=== PATIENT | male | born 1940 | race Hispanic/Latino ===

== ENCOUNTER 2021-10-03 09:18 | Inpatient (IN) | payer MEDICARE, OTHER ==
[2021-10-03] VITALS (7 sets, daily range): BP systolic 118–145; BP diastolic 61–85
[~2021-10-03] VITALS: Ht 170.2 cm; Wt 104.3 kg
[2021-10-03] MEDS ORDERED: MEROPENEM 1 GM in SODIUM CHLORIDE 0.9% 100 ML IV STA (09:35)
[2021-10-03] MEDS ORDERED: Vancomycin IV 500 MG in SODIUM CHLORIDE 0.9% 100 ML 100 ML IV STA (09:35)
[2021-10-03] MEDS ORDERED: SODIUM CHLORIDE 0.9% 1000ML 1,000 ML IV SCH (09:45)
[2021-10-03 09:49] LABS: BASOPHILS % 0.2 % (0.0-1.0); EOSINOPHILS # (AUTO) 0.1 (0.0-0.4); EOSINOPHILS % 0.6 % (0.0-6.0); HEMATOCRIT 32.4 % (38.2-49.6); HEMOGLOBIN 10.8 g/dL (14.0-18.0); LYMPHOCYTES # (AUTO) 0.8 (1.0-3.2); LYMPHOCYTES % 8.2 % (18.0-39.1); MEAN CORPUSCULAR HEMOGLOBIN 30.4 pg (28-32); MEAN CORPUSCULAR HGB CONC 33.3 g/dL (31-35); MEAN CORPUSCULAR VOLUME 91.3 fL (81-99); MONOCYTES # (AUTO) 0.8 (0.2-0.8); MONOCYTES % 8.6 % (4.4-11.3); PLATELET COUNT 251 x10e3/uL (140-360); RED BLOOD COUNT 3.55 x10e6/uL (4.3-5.7); RED CELL DISTRIBUTION WIDTH 12.7 % (11.7-14.4)
[2021-10-03] MEDS ORDERED: SODIUM CHLORIDE 0.9% 1000ML 1,000 ML ONE (10:00)
[2021-10-03 10:18] LABS: ALBUMIN 2.9 g/dL (3.5-5.0); ALBUMIN/GLOBULIN RATIO 0.8 (0.8-2.0); ANION GAP 14.1 mmol/L (8-16); CALCIUM 7.9 mg/dL (8.4-10.2); CREATININE, SERUM 2.26 mg/dL (0.72-1.25); POTASSIUM 4.1 mmol/L (3.5-5.1)
[2021-10-03 10:24] LABS: CREATINE KINASE MB 1.7 ng/mL (0-5.0)
[2021-10-03] MEDS ORDERED: Vancomycin IV 1.5 GM in SODIUM CHLORIDE 0.9% 250ML 300 ML IV STA (10:25)
[2021-10-03] MEDS ORDERED: FLOMAX0.4 MG PO (14:38)
[2021-10-03] MEDS ORDERED: JANUVIA50 MG PO (14:38)
[2021-10-03] MEDS ORDERED: PANTOPRAZOLE SO40 MG PO (14:38)
[2021-10-03] MEDS ORDERED: HUMULIN N100 UNITS/ SC (14:38)
[2021-10-03] MEDS ORDERED: FINASTERIDE5 MG PO (14:38)
[2021-10-03] MEDS ORDERED: FUROSEMIDE40 MG PO (14:38)
[2021-10-03] MEDS ORDERED: NIFEDIPINE ER30 M1 PO (14:38)
[2021-10-03] MEDS ORDERED: KEPPRA500 MG PO (14:38)
[2021-10-03] MEDS ORDERED: HYDRALAZINE HCL50 MG PO (14:38)
[2021-10-03] MEDS ORDERED: COREG12.5 MG PO (14:38)
[2021-10-03] MEDS ORDERED: DEXTROSE 50% SYRINGE 50 ML IV PRN (15:30)
[2021-10-03] MEDS ORDERED: MAGNESIUM/ALUMINUM/SIMETHICONE 30 ML UDC PO PRN (15:30)
[2021-10-03] MEDS ORDERED: DOCUSATE SODIUM 100 MG CAP PO PRN (15:30)
[2021-10-03] MEDS ORDERED: ONDANSETRON HCL INJ 2MG/ML 2ML 2 MG/ML VIAL IV PRN (15:30)
[2021-10-03] MEDS ORDERED: ACETAMINOPHEN 325 MG TAB PO PRN (15:30)
[2021-10-03] MEDS ORDERED: HYDRALAZINE HCL 25 MG TAB PO SCH (16:00)
[2021-10-03] MEDS: INSULIN REGULAR, HUMAN 100 UNIT/1 ML SQ SCH ×2 (16:30→21:44)
[2021-10-03] MEDS ORDERED: ENOXAPARIN SOD INJ 40 MG/0.4 ML SYR SC SCH (17:00)
[2021-10-03] MEDS: CARVEDILOL 12.5 MG TAB PO SCH (17:00)
[2021-10-03] MEDS: ENOXAPARIN SODIUM INJ 100 MG/ML SYR SC SCH (17:39)
[2021-10-03 17:53] LABS: FERRITIN 183.58 ng/mL (21.81-274.66)
[2021-10-03 18:51] LABS: BACTERIA,URINE RARE /HPF; CLARITY,URINE CLEAR (CLEAR); COLOR,URINE YELLOW (YELLOW); KETONES,URINE NEGATIVE (NEGATIVE); LEUKOCYTE ESTERASE ,URINE SMALL (NEGATIVE); MUCUS,URINE FEW (RARE); NITRITE,URINE NEGATIVE (NEGATIVE); PROTEIN,URINE DIPSTICK 2+ (NEGATIVE); RBC,URINE 0-5 /HPF (0-5); URINE UROBILINOGEN 0.2 mg/dL (0.2 - 1)
[2021-10-03 19:38] LABS: SODIUM,URINE < 20 mmol/L
[2021-10-03] MEDS ORDERED: NON-FORMULARY MEDICATION (Hydralazine Hcl* 50 MG) PO SCH (21:00)
[2021-10-03] MEDS: HYDRALAZINE HCL 25 MG TAB PO SCH (21:43)
[2021-10-04 01:22] VITALS: BP 151/59
[2021-10-04 04:53] VITALS: BP 159/68
[2021-10-04 04:59] LABS: BASOPHILS % 0.1 % (0.0-1.0); HEMATOCRIT 33.9 % (38.2-49.6); LYMPHOCYTES # (AUTO) 0.4 (1.0-3.2); LYMPHOCYTES % 4.2 % (18.0-39.1); MEAN CORPUSCULAR HEMOGLOBIN 30.1 pg (28-32); MEAN CORPUSCULAR HGB CONC 32.4 g/dL (31-35); MEAN CORPUSCULAR VOLUME 92.9 fL (81-99); MONOCYTES # (AUTO) 0.4 (0.2-0.8); MONOCYTES % 4.6 % (4.4-11.3); NEUTROPHILS # (AUTO) 8.7 (2.1-6.9); NEUTROPHILS % 90.3 % (38.7-80.0); PLATELET COUNT 267 x10e3/uL (140-360); RED BLOOD COUNT 3.65 x10e6/uL (4.3-5.7); RED CELL DISTRIBUTION WIDTH 12.7 % (11.7-14.4)
[2021-10-04 05:19] LABS: ALBUMIN 2.9 g/dL (3.5-5.0); ALBUMIN/GLOBULIN RATIO 0.7 (0.8-2.0); ANION GAP 15.5 mmol/L (8-16); CALCIUM 7.8 mg/dL (8.4-10.2); CREATININE, SERUM 2.46 mg/dL (0.72-1.25); MAGNESIUM 2.4 MG/DL (1.3-2.1); PHOSPHORUS 5.6 MG/DL (2.3-4.7); POTASSIUM 4.5 mmol/L (3.5-5.1)
[2021-10-04] MEDS: INSULIN REGULAR, HUMAN 100 UNIT/1 ML SQ SCH ×4 (07:30→21:00)
[2021-10-04 08:00] VITALS: BP 159/68
[2021-10-04] MEDS: CARVEDILOL 12.5 MG TAB PO SCH ×2 (08:00→16:34)
[2021-10-04] MEDS: LEVETIRACETAM 500 MG TAB PO SCH (09:00)
[2021-10-04] MEDS: PANTOPRAZOLE SOD 40 MG TABEC PO SCH (09:00)
[2021-10-04] MEDS: MULTIVITAMINS/MINERALS TAB PO SCH (09:00)
[2021-10-04] MEDS: HYDRALAZINE HCL 25 MG TAB PO SCH ×3 (09:00→21:55)
[2021-10-04] MEDS ORDERED: NON-FORMULARY MEDICATION (Sitagliptin Phosphate* (Januvia*) 50 MG) PO SCH (09:00)
[2021-10-04] MEDS: SITAGLIPTIN 100 MG TAB PO SCH (09:00)
[2021-10-04] MEDS: TAMSULOSIN HCL 0.4 MG CAP PO SCH (09:00)
[2021-10-04] MEDS: CEFEPIME 1 GM in SODIUM CHLORIDE 0.9% 50ML 50 ML IV SCH (09:00)
[2021-10-04] MEDS: FINASTERIDE 5 MG TAB PO SCH (09:00)
[2021-10-04] MEDS: ENOXAPARIN SODIUM INJ 100 MG/ML SYR SC SCH (16:36)
[2021-10-04] MEDS ORDERED: FUROSEMIDE 40 MG TAB PO ONE (16:45)
[2021-10-04 20:00] VITALS: BP 154/71
[2021-10-04 20:54] VITALS: BP 154/71
[2021-10-05] VITALS (7 sets, daily range): BP systolic 147–199; BP diastolic 56–86
[2021-10-05] MEDS: HYDRALAZINE HCL 20 MG/ML VIAL IV PRN ×2 (05:52→22:49)
[2021-10-05 07:06] LABS: ANION GAP 13.7 mmol/L (8-16); CALCIUM 7.4 mg/dL (8.4-10.2); CREATININE, SERUM 1.98 mg/dL (0.72-1.25); MAGNESIUM 2.1 MG/DL (1.3-2.1); POTASSIUM 4.7 mmol/L (3.5-5.1)
[2021-10-05] MEDS: CARVEDILOL 12.5 MG TAB PO SCH ×2 (08:00→18:08)
[2021-10-05] MEDS: FINASTERIDE 5 MG TAB PO SCH (09:00)
[2021-10-05] MEDS: HYDRALAZINE HCL 25 MG TAB PO SCH ×2 (09:00→21:04)
[2021-10-05] MEDS: CEFEPIME 1 GM in SODIUM CHLORIDE 0.9% 50ML 50 ML IV SCH (09:00)
[2021-10-05] MEDS: MULTIVITAMINS/MINERALS TAB PO SCH (09:00)
[2021-10-05] MEDS: FUROSEMIDE 40 MG TAB PO SCH (09:00)
[2021-10-05] MEDS: SITAGLIPTIN 100 MG TAB PO SCH (09:00)
[2021-10-05] MEDS: PANTOPRAZOLE SOD 40 MG TABEC PO SCH (09:00)
[2021-10-05] MEDS: LEVETIRACETAM 500 MG TAB PO SCH (09:00)
[2021-10-05] MEDS: TAMSULOSIN HCL 0.4 MG CAP PO SCH (09:00)
[2021-10-05] MEDS: INSULIN REGULAR, HUMAN 100 UNIT/1 ML SQ SCH ×4 (11:10→21:05)
[2021-10-05] MEDS: ENOXAPARIN SODIUM INJ 100 MG/ML SYR SC SCH (17:00)
[2021-10-05] MEDS ORDERED: MAGNESIUM HYDROXIDE 30 ML UDC PO ONE (20:30)
[2021-10-06] VITALS (8 sets, daily range): BP systolic 144–182; BP diastolic 52–83
[2021-10-06 07:17] LABS: ANION GAP 11.4 mmol/L (8-16); CALCIUM 7.7 mg/dL (8.4-10.2); CREATININE, SERUM 1.73 mg/dL (0.72-1.25); POTASSIUM 4.4 mmol/L (3.5-5.1)
[2021-10-06] MEDS: INSULIN REGULAR, HUMAN 100 UNIT/1 ML SQ SCH ×4 (07:30→21:39)
[2021-10-06] MEDS: CARVEDILOL 12.5 MG TAB PO SCH ×2 (08:00→16:50)
[2021-10-06] MEDS: CEFEPIME 1 GM in SODIUM CHLORIDE 0.9% 50ML 50 ML IV SCH (09:00)
[2021-10-06] MEDS: FINASTERIDE 5 MG TAB PO SCH (09:00)
[2021-10-06] MEDS: TAMSULOSIN HCL 0.4 MG CAP PO SCH (09:00)
[2021-10-06] MEDS: PANTOPRAZOLE SOD 40 MG TABEC PO SCH (09:00)
[2021-10-06] MEDS: HYDRALAZINE HCL 25 MG TAB PO SCH ×3 (09:00→21:30)
[2021-10-06] MEDS: MULTIVITAMINS/MINERALS TAB PO SCH (09:00)
[2021-10-06] MEDS: FUROSEMIDE 40 MG TAB PO SCH (09:00)
[2021-10-06] MEDS: SITAGLIPTIN 100 MG TAB PO SCH (09:00)
[2021-10-06] MEDS: LEVETIRACETAM 500 MG TAB PO SCH (09:00)
[2021-10-06 12:39] LABS: TOTAL PROTEIN, URINE 65.4 mg/dL (1-14)
[2021-10-06] MEDS: ENOXAPARIN SODIUM INJ 100 MG/ML SYR SC SCH (16:50)
[2021-10-06] MEDS: HYDRALAZINE HCL 20 MG/ML VIAL IV PRN (23:14)
[2021-10-07] VITALS (8 sets, daily range): BP systolic 144–180; BP diastolic 58–80
[2021-10-07] MEDS: HYDRALAZINE HCL 20 MG/ML VIAL IV PRN (05:27)
[2021-10-07] MEDS: INSULIN REGULAR, HUMAN 100 UNIT/1 ML SQ SCH ×4 (07:30→21:00)
[2021-10-07] MEDS: CARVEDILOL 12.5 MG TAB PO SCH ×2 (08:00→16:44)
[2021-10-07] MEDS: FINASTERIDE 5 MG TAB PO SCH (09:00)
[2021-10-07] MEDS: FUROSEMIDE 40 MG TAB PO SCH (09:00)
[2021-10-07] MEDS: SITAGLIPTIN 100 MG TAB PO SCH (09:00)
[2021-10-07] MEDS: TAMSULOSIN HCL 0.4 MG CAP PO SCH (09:00)
[2021-10-07] MEDS: HYDRALAZINE HCL 25 MG TAB PO SCH ×3 (09:00→21:51)
[2021-10-07] MEDS: MULTIVITAMINS/MINERALS TAB PO SCH (09:00)
[2021-10-07] MEDS: CEFEPIME 1 GM in SODIUM CHLORIDE 0.9% 50ML 50 ML IV SCH (09:00)
[2021-10-07] MEDS: LEVETIRACETAM 500 MG TAB PO SCH (09:00)
[2021-10-07] MEDS: PANTOPRAZOLE SOD 40 MG TABEC PO SCH (09:00)
[2021-10-07] MEDS: ENOXAPARIN SODIUM INJ 100 MG/ML SYR SC SCH (16:44)
[2021-10-08] VITALS (7 sets, daily range): BP systolic 120–194; BP diastolic 64–81
[2021-10-08 05:46] LABS: BASOPHILS % 0.2 % (0.0-1.0); EOSINOPHILS # (AUTO) 0.1 (0.0-0.4); EOSINOPHILS % 1.2 % (0.0-6.0); HEMATOCRIT 33.8 % (38.2-49.6); HEMOGLOBIN 11.4 g/dL (14.0-18.0); LYMPHOCYTES # (AUTO) 0.9 (1.0-3.2); LYMPHOCYTES % 10.3 % (18.0-39.1); MEAN CORPUSCULAR HEMOGLOBIN 30.6 pg (28-32); MEAN CORPUSCULAR HGB CONC 33.7 g/dL (31-35); MEAN CORPUSCULAR VOLUME 90.6 fL (81-99); MONOCYTES # (AUTO) 0.8 (0.2-0.8); MONOCYTES % 8.8 % (4.4-11.3); NEUTROPHILS # (AUTO) 7.1 (2.1-6.9); NEUTROPHILS % 79.1 % (38.7-80.0); PLATELET COUNT 249 x10e3/uL (140-360); RED BLOOD COUNT 3.73 x10e6/uL (4.3-5.7); RED CELL DISTRIBUTION WIDTH 12.6 % (11.7-14.4)
[2021-10-08 06:10] LABS: ALBUMIN 2.6 g/dL (3.5-5.0); ALBUMIN/GLOBULIN RATIO 0.7 (0.8-2.0); ANION GAP 14.1 mmol/L (8-16); CALCIUM 8.5 mg/dL (8.4-10.2); CREATININE, SERUM 1.81 mg/dL (0.72-1.25); POTASSIUM 4.1 mmol/L (3.5-5.1)
[2021-10-08] MEDS: INSULIN REGULAR, HUMAN 100 UNIT/1 ML SQ SCH ×4 (07:30→21:26)
[2021-10-08] MEDS: TAMSULOSIN HCL 0.4 MG CAP PO SCH (10:19)
[2021-10-08] MEDS: CEFEPIME 1 GM in SODIUM CHLORIDE 0.9% 50ML 50 ML IV SCH (10:19)
[2021-10-08] MEDS: PANTOPRAZOLE SOD 40 MG TABEC PO SCH (10:19)
[2021-10-08] MEDS: FINASTERIDE 5 MG TAB PO SCH (10:19)
[2021-10-08] MEDS: FUROSEMIDE 40 MG TAB PO SCH (10:19)
[2021-10-08] MEDS: CARVEDILOL 12.5 MG TAB PO SCH ×2 (10:19→16:53)
[2021-10-08] MEDS: MULTIVITAMINS/MINERALS TAB PO SCH (10:19)
[2021-10-08] MEDS: SITAGLIPTIN 100 MG TAB PO SCH (10:19)
[2021-10-08] MEDS: LEVETIRACETAM 500 MG TAB PO SCH (10:19)
[2021-10-08] MEDS: HYDRALAZINE HCL 25 MG TAB PO SCH ×3 (10:20→21:00)
[2021-10-08] MEDS: ENOXAPARIN SODIUM INJ 100 MG/ML SYR SC SCH (16:53)
[2021-10-09] VITALS: BP 166/74
[2021-10-09 04:00] VITALS: BP 177/76
[2021-10-09] MEDS: INSULIN REGULAR, HUMAN 100 UNIT/1 ML SQ SCH (07:30)
[2021-10-09 08:00] VITALS: BP 177/75
[2021-10-09] MEDS: CARVEDILOL 12.5 MG TAB PO SCH (08:00)
[2021-10-09] MEDS: MULTIVITAMINS/MINERALS TAB PO SCH (09:00)
[2021-10-09] MEDS: TAMSULOSIN HCL 0.4 MG CAP PO SCH (09:00)
[2021-10-09] MEDS: SITAGLIPTIN 100 MG TAB PO SCH (09:00)
[2021-10-09] MEDS: HYDRALAZINE HCL 25 MG TAB PO SCH (09:00)
[2021-10-09] MEDS: LEVETIRACETAM 500 MG TAB PO SCH (09:00)
[2021-10-09] MEDS: FINASTERIDE 5 MG TAB PO SCH (09:00)
[2021-10-09] MEDS: PANTOPRAZOLE SOD 40 MG TABEC PO SCH (09:00)
[2021-10-09] MEDS: CEFEPIME 1 GM in SODIUM CHLORIDE 0.9% 50ML 50 ML IV SCH (09:00)
[2021-10-09] MEDS: FUROSEMIDE 40 MG TAB PO SCH (09:00)
[2021-10-09 10:29] VITALS: BP 177/75
[2021-10-09] MEDS ORDERED: CEFDINIR300 MG PO (10:43)
[2021-10-09] MEDS ORDERED: COLACE100 MG PO (10:43)
[2021-10-09] MEDS ORDERED: FUROSEMIDE40 MG PO (10:43)
[2021-10-09] MEDS ORDERED: HYDRALAZINE HCL25 MG PO (10:43)
[2021-10-09] MEDS ORDERED: ELIQUIS2.5 MG PO (10:44)
[2021-10-09] MEDS ORDERED: ONDANSETRON HCL 4 MG ORAL DISINTEGRATING TAB PO PRN (12:30)
== END 2021-10-09 14:15 | disposition home or self-care (01) | DRG 193 ==
LOC: ER 09:21 → ERHOLD 09:44 → IMCU 11:21 → MED/SURG2 16:20 → OBSVTOIN 10-06 10:17
PROVIDERS: ADMIT Internal Medicine; ATTEND Internal Medicine
DX: J18.9 Pneumonia, unspecified organism (principal); J96.01 Acute respiratory failure with hypoxia; I50.33 Acute on chronic diastolic (congestive) heart failure; I13.0 Hypertensive heart and chronic kidney disease with heart failure and stage 1 through stage 4 chronic kidney disease, or unspecified chronic kidney disease; N17.9 Acute kidney failure, unspecified; E11.22 Type 2 diabetes mellitus with diabetic chronic kidney disease; Z79.899 Other long term (current) drug therapy; N40.0 Benign prostatic hyperplasia without lower urinary tract symptoms; E88.09 Other disorders of plasma-protein metabolism, not elsewhere classified; D63.1 Anemia in chronic kidney disease; E66.01 Morbid (severe) obesity due to excess calories; Z68.36 Body mass index [BMI] 36.0-36.9, adult; N18.30 Chronic kidney disease, stage 3 unspecified; M25.512 Pain in left shoulder; I48.91 Unspecified atrial fibrillation; Z79.01 Long term (current) use of anticoagulants; I48.0 Paroxysmal atrial fibrillation
CPT/HCPCS: 36415; 71045; 71250; 76770; 80048; 80053; 81001; 81050; 82550; 82553; 82570; 82728; 82948; 83540; 83735; 83880; 84100; 84156; 84300; 84443; 84466; 84484; 85025; 86141; 87040; 87086; 87449; 93005; 93306; 94799; 97139; 99251; 99284; G0378; J0360; J0692; J1650; J1817; J2185; J2405; J3370; J7030; J7050; U0002

== ENCOUNTER 2021-11-05 11:43 | Inpatient (IN) | payer MEDICARE, OTHER ==
[~2021-11-05] VITALS: Ht 170.2 cm; Wt 98.4 kg
[~2021-11-05 11:43] MED LIST: CEFDINIR300 MG PO; COLACE100 MG PO; COREG12.5 MG PO; ELIQUIS2.5 MG PO; FINASTERIDE5 MG PO; FLOMAX0.4 MG PO; FUROSEMIDE40 MG PO; HUMULIN N100 UNITS/ SC; HYDRALAZINE HCL25 MG PO; HYDRALAZINE HCL50 MG PO; JANUVIA50 MG PO; KEPPRA500 MG PO; NIFEDIPINE ER30 M1 PO; PANTOPRAZOLE SO40 MG PO
[2021-11-05 13:17] LABS: BASOPHILS % 0.4 % (0.0-1.0); EOSINOPHILS # (AUTO) 0.1 (0.0-0.4); EOSINOPHILS % 0.6 % (0.0-6.0); HEMATOCRIT 34.4 % (38.2-49.6); HEMOGLOBIN 11.4 g/dL (14.0-18.0); LYMPHOCYTES # (AUTO) 0.8 (1.0-3.2); LYMPHOCYTES % 6.8 % (18.0-39.1); MEAN CORPUSCULAR HEMOGLOBIN 30.2 pg (28-32); MEAN CORPUSCULAR HGB CONC 33.1 g/dL (31-35); MEAN CORPUSCULAR VOLUME 91.2 fL (81-99); MONOCYTES # (AUTO) 1.3 (0.2-0.8); MONOCYTES % 11.2 % (4.4-11.3); NEUTROPHILS # (AUTO) 9.2 (2.1-6.9); NEUTROPHILS % 80.4 % (38.7-80.0); PLATELET COUNT 240 x10e3/uL (140-360); RED BLOOD COUNT 3.77 x10e6/uL (4.3-5.7); RED CELL DISTRIBUTION WIDTH 12.9 % (11.7-14.4)
[2021-11-05 13:26] LABS: INR 1.09; PROTHROMBIN TIME 14.9 seconds (11.9-14.5)
[2021-11-05 13:27] LABS: PARTIAL THROMBOPLASTIN TIME 40.7 seconds (23.8-35.5)
[2021-11-05 13:38] LABS: ALBUMIN 2.9 g/dL (3.5-5.0); ALBUMIN/GLOBULIN RATIO 0.7 (0.8-2.0); ANION GAP 14.6 mmol/L (8-16); CALCIUM 8.5 mg/dL (8.4-10.2); CREATININE, SERUM 2.22 mg/dL (0.72-1.25); POTASSIUM 4.6 mmol/L (3.5-5.1)
[2021-11-05 13:45] LABS: CREATINE KINASE MB 1.1 ng/mL (0-5.0)
[2021-11-05] MEDS ORDERED: SODIUM CHLORIDE 0.9% 1000ML 2,000 ML IV SCH (14:15)
[2021-11-05 14:35] LABS: CLARITY,URINE CLOUDY (CLEAR); COLOR,URINE YELLOW (YELLOW); KETONES,URINE NEGATIVE (NEGATIVE); LEUKOCYTE ESTERASE ,URINE SMALL (NEGATIVE); NITRITE,URINE NEGATIVE (NEGATIVE); PROTEIN,URINE DIPSTICK >=300 (NEGATIVE)
[2021-11-05 14:36] LABS: URINE UROBILINOGEN 0.2 mg/dL (0.2 - 1)
[2021-11-05 14:48] LABS: BACTERIA,URINE MANY /HPF; EPITHELIAL CELLS,URINE FEW /LPF; RBC,URINE 0-5 /HPF (0-5); WBC,URINE (MAN) >50 /HPF (0-5)
[2021-11-05] MEDS ORDERED: CEFTRIAXONE 1 GM in SODIUM CHLORIDE 0.9% 50ML 50 ML IV SCH (15:00)
[2021-11-05] MEDS ORDERED: SODIUM CHLORIDE FLUSH 10 ML SYR INJ PRN (15:15)
[2021-11-05] MEDS ORDERED: NIFEDIPINE ER30 M1 PO (16:27)
[2021-11-05] MEDS ORDERED: HYDRALAZINE HCL50 MG PO (16:27)
[2021-11-05] MEDS ORDERED: ELIQUIS2.5 MG PO (16:27)
[2021-11-05] MEDS ORDERED: JANUVIA50 MG PO (16:27)
[2021-11-05] MEDS ORDERED: LOSARTAN POTASS25 MG PO (16:27)
[2021-11-05] MEDS ORDERED: PENTOXIFYLLINE400 MG PO (16:27)
[2021-11-05] MEDS ORDERED: FUROSEMIDE INJ 10 MG/ML 4 ML VIAL IV ONE (16:30)
[2021-11-05 17:30] VITALS: BP 140/68
[2021-11-05 17:31] VITALS: BP 140/68
[2021-11-05] MEDS ORDERED: DOCUSATE SODIU100 MG PO (17:52)
[2021-11-05 18:01] VITALS: BP 140/68
[2021-11-05 20:00] VITALS: BP 141/64
[2021-11-05 20:18] VITALS: BP 141/64
[2021-11-05] MEDS: HYDRALAZINE HCL 25 MG TAB PO SCH (20:40)
[2021-11-05] MEDS: NPH, HUMAN INSULIN ISOPHANE 100 UNIT/1 ML 3ML VIAL SQ SCH (20:41)
[2021-11-05 20:57] LABS: CREATINE KINASE MB 1.1 ng/mL (0-5.0)
[2021-11-05 23:20] VITALS: BP 156/67
[2021-11-06] VITALS (7 sets, daily range): BP systolic 136–155; BP diastolic 60–82
[2021-11-06] MEDS ORDERED: LIDOCAINE 4% PATCH TP PRN (01:15)
[2021-11-06] MEDS ORDERED: ONDANSETRON HCL INJ 2MG/ML 2ML 2 MG/ML VIAL IV PRN (01:15)
[2021-11-06] MEDS ORDERED: SIMETHICONE 80 MG CHEW PO PRN (01:15)
[2021-11-06] MEDS ORDERED: HYDRALAZINE HCL 20 MG/ML VIAL IV PRN (01:15)
[2021-11-06] MEDS ORDERED: TRAMADOL HCL 50 MG TAB PO PRN (01:15)
[2021-11-06] MEDS ORDERED: ALBUTEROL/IPRATROPIUM 3 ML NEB NEB PRN (01:15)
[2021-11-06] MEDS ORDERED: DIPHENHYDRAMINE HCL 25 MG CAP PO PRN (01:15)
[2021-11-06] MEDS ORDERED: DEXTROSE 50% SYRINGE 50 ML IV PRN (01:15)
[2021-11-06] MEDS ORDERED: MELATONIN 5 MG TABLET PO PRN (01:15)
[2021-11-06] MEDS ORDERED: POTASSIUM CHLORIDE 20 MEQ TAB CR PO PRN (01:15)
[2021-11-06] MEDS ORDERED: DOCUSATE SODIUM 100 MG CAP PO PRN (01:15)
[2021-11-06] MEDS ORDERED: BENZONATATE 100 MG CAP PO PRN (01:15)
[2021-11-06] MEDS ORDERED: ACETAMINOPHEN 325 MG TAB PO PRN (01:15)
[2021-11-06 05:34] LABS: BASOPHILS % 0.4 % (0.0-1.0); EOSINOPHILS # (AUTO) 0.1 (0.0-0.4); EOSINOPHILS % 0.5 % (0.0-6.0); HEMATOCRIT 34.5 % (38.2-49.6); HEMOGLOBIN 11.6 g/dL (14.0-18.0); LYMPHOCYTES # (AUTO) 0.5 (1.0-3.2); LYMPHOCYTES % 5.7 % (18.0-39.1); MEAN CORPUSCULAR HEMOGLOBIN 30.7 pg (28-32); MEAN CORPUSCULAR HGB CONC 33.6 g/dL (31-35); MEAN CORPUSCULAR VOLUME 91.3 fL (81-99); MONOCYTES % 10.2 % (4.4-11.3); NEUTROPHILS # (AUTO) 7.8 (2.1-6.9); NEUTROPHILS % 82.8 % (38.7-80.0); PLATELET COUNT 243 x10e3/uL (140-360); RED BLOOD COUNT 3.78 x10e6/uL (4.3-5.7)
[2021-11-06 05:54] LABS: ANION GAP 13.9 mmol/L (8-16); CALCIUM 8.3 mg/dL (8.4-10.2); CREATININE, SERUM 2.16 mg/dL (0.72-1.25); POTASSIUM 3.9 mmol/L (3.5-5.1)
[2021-11-06 05:58] LABS: CHOL/HDL RATIO 3.4 (3.9-4.7)
[2021-11-06 06:08] LABS: CREATINE KINASE MB 0.8 ng/mL (0-5.0)
[2021-11-06 06:21] LABS: THYROID STIMULATING HORMONE 2.206 uIU/mL (0.350-4.940)
[2021-11-06] MEDS: PANTOPRAZOLE SOD 40 MG TABEC PO SCH (08:30)
[2021-11-06] MEDS: CARVEDILOL 12.5 MG TAB PO SCH ×2 (09:00→17:12)
[2021-11-06] MEDS: NPH, HUMAN INSULIN ISOPHANE 100 UNIT/1 ML 3ML VIAL SQ SCH ×2 (09:00→17:12)
[2021-11-06] MEDS: HYDRALAZINE HCL 25 MG TAB PO SCH ×3 (09:57→21:43)
[2021-11-06] MEDS: FINASTERIDE 5 MG TAB PO SCH (09:57)
[2021-11-06] MEDS: DOCUSATE SODIUM 100 MG CAP PO SCH ×2 (09:57→17:12)
[2021-11-06] MEDS: TAMSULOSIN HCL 0.4 MG CAP PO SCH (09:57)
[2021-11-06] MEDS: CEFDINIR 300 MG CAP PO SCH ×2 (09:57→17:12)
[2021-11-06] MEDS: LEVETIRACETAM 500 MG TAB PO SCH (09:57)
[2021-11-06] MEDS: LOSARTAN POTASSIUM 25 MG TAB PO SCH (09:57)
[2021-11-06] MEDS: ASPIRIN 81 MG ENTERIC COATED PO SCH (09:57)
[2021-11-06] MEDS: SITAGLIPTIN 100 MG TAB PO SCH (09:57)
[2021-11-06] MEDS: FUROSEMIDE INJ 10 MG/ML 4 ML VIAL IV SCH ×2 (09:58→21:43)
[2021-11-06] MEDS: ENOXAPARIN SODIUM INJ 100 MG/ML SYR SC SCH (17:12)
[2021-11-06] MEDS ORDERED: ENOXAPARIN SODIUM INJ 100 MG/ML SYR SC SCH (18:00)
[2021-11-07] VITALS (8 sets, daily range): BP systolic 148–174; BP diastolic 61–78
[2021-11-07 06:01] LABS: BASOPHILS % 0.5 % (0.0-1.0); EOSINOPHILS # (AUTO) 0.1 (0.0-0.4); EOSINOPHILS % 1.4 % (0.0-6.0); HEMOGLOBIN 11.5 g/dL (14.0-18.0); LYMPHOCYTES % 14.9 % (18.0-39.1); MEAN CORPUSCULAR HEMOGLOBIN 30.5 pg (28-32); MEAN CORPUSCULAR HGB CONC 33.8 g/dL (31-35); MEAN CORPUSCULAR VOLUME 90.2 fL (81-99); MONOCYTES # (AUTO) 0.9 (0.2-0.8); MONOCYTES % 12.9 % (4.4-11.3); NEUTROPHILS # (AUTO) 4.7 (2.1-6.9); NEUTROPHILS % 69.8 % (38.7-80.0); PLATELET COUNT 256 x10e3/uL (140-360); RED BLOOD COUNT 3.77 x10e6/uL (4.3-5.7); RED CELL DISTRIBUTION WIDTH 13.1 % (11.7-14.4)
[2021-11-07 06:28] LABS: ALBUMIN 2.7 g/dL (3.5-5.0); ALBUMIN/GLOBULIN RATIO 0.7 (0.8-2.0); ANION GAP 13.6 mmol/L (8-16); CALCIUM 8.9 mg/dL (8.4-10.2); CREATININE, SERUM 2.21 mg/dL (0.72-1.25); MAGNESIUM 1.9 MG/DL (1.3-2.1); POTASSIUM 3.6 mmol/L (3.5-5.1)
[2021-11-07] MEDS: FUROSEMIDE INJ 10 MG/ML 4 ML VIAL IV SCH ×2 (09:39→20:36)
[2021-11-07] MEDS: PANTOPRAZOLE SOD 40 MG TABEC PO SCH (09:40)
[2021-11-07] MEDS: CARVEDILOL 12.5 MG TAB PO SCH ×2 (09:41→18:11)
[2021-11-07] MEDS: ASPIRIN 81 MG ENTERIC COATED PO SCH (09:41)
[2021-11-07] MEDS: HYDRALAZINE HCL 25 MG TAB PO SCH ×3 (09:41→20:37)
[2021-11-07] MEDS: DOCUSATE SODIUM 100 MG CAP PO SCH ×2 (09:41→18:11)
[2021-11-07] MEDS: CEFDINIR 300 MG CAP PO SCH (09:42)
[2021-11-07] MEDS: LOSARTAN POTASSIUM 25 MG TAB PO SCH (09:42)
[2021-11-07] MEDS: SITAGLIPTIN 100 MG TAB PO SCH (09:42)
[2021-11-07] MEDS: TAMSULOSIN HCL 0.4 MG CAP PO SCH (09:42)
[2021-11-07] MEDS: LEVETIRACETAM 500 MG TAB PO SCH (09:42)
[2021-11-07] MEDS: FINASTERIDE 5 MG TAB PO SCH (09:43)
[2021-11-07] MEDS: NPH, HUMAN INSULIN ISOPHANE 100 UNIT/1 ML 3ML VIAL SQ SCH ×2 (10:00→20:37)
[2021-11-07] MEDS: CEFTRIAXONE 1 GM in SODIUM CHLORIDE 0.9% 50ML 50 ML IV SCH (14:09)
[2021-11-07] MEDS ORDERED: SODIUM CHLORIDE 0.9% 250ML 250 ML ONE (14:25)
[2021-11-07] MEDS: ENOXAPARIN SODIUM INJ 100 MG/ML SYR SC SCH (18:11)
[2021-11-07] MEDS ORDERED: ONDANSETRON HCL 4 MG ORAL DISINTEGRATING TAB PO PRN (18:30)
[2021-11-08 00:04] VITALS: BP 144/63
[2021-11-08 04:07] VITALS: BP 166/73
[2021-11-08 06:44] LABS: ANION GAP 14.7 mmol/L (8-16); CALCIUM 8.7 mg/dL (8.4-10.2); CREATININE, SERUM 2.55 mg/dL (0.72-1.25); POTASSIUM 3.7 mmol/L (3.5-5.1)
[2021-11-08] MEDS: PANTOPRAZOLE SOD 40 MG TABEC PO SCH (08:30)
[2021-11-08] MEDS: CARVEDILOL 12.5 MG TAB PO SCH ×2 (08:55→18:13)
[2021-11-08 09:00] VITALS: BP 176/96
[2021-11-08] MEDS: SITAGLIPTIN 100 MG TAB PO SCH (09:17)
[2021-11-08] MEDS: FUROSEMIDE INJ 10 MG/ML 4 ML VIAL IV SCH (09:17)
[2021-11-08] MEDS: FINASTERIDE 5 MG TAB PO SCH (09:17)
[2021-11-08] MEDS: DOCUSATE SODIUM 100 MG CAP PO SCH ×2 (09:17→18:12)
[2021-11-08] MEDS: ASPIRIN 81 MG ENTERIC COATED PO SCH (09:17)
[2021-11-08] MEDS: LOSARTAN POTASSIUM 25 MG TAB PO SCH (09:17)
[2021-11-08] MEDS: HYDRALAZINE HCL 25 MG TAB PO SCH ×3 (09:17→20:44)
[2021-11-08] MEDS: TAMSULOSIN HCL 0.4 MG CAP PO SCH (09:17)
[2021-11-08] MEDS: LEVETIRACETAM 500 MG TAB PO SCH (09:17)
[2021-11-08] MEDS: NPH, HUMAN INSULIN ISOPHANE 100 UNIT/1 ML 3ML VIAL SQ SCH ×2 (09:17→20:46)
[2021-11-08 11:54] VITALS: BP 139/70
[2021-11-08] MEDS: CEFTRIAXONE 1 GM in SODIUM CHLORIDE 0.9% 50ML 50 ML IV SCH (13:15)
[2021-11-08] MEDS: ENOXAPARIN SODIUM INJ 100 MG/ML SYR SC SCH (18:13)
[2021-11-08 20:00] VITALS: BP 143/70
[2021-11-08 20:40] VITALS: BP 143/70
[2021-11-09] VITALS (7 sets, daily range): BP systolic 122–173; BP diastolic 59–72
[2021-11-09 08:06] LABS: CALCIUM 8.6 mg/dL (8.4-10.2); CREATININE, SERUM 2.13 mg/dL (0.72-1.25)
[2021-11-09] MEDS: NPH, HUMAN INSULIN ISOPHANE 100 UNIT/1 ML 3ML VIAL SQ SCH ×2 (09:00→22:36)
[2021-11-09] MEDS: PANTOPRAZOLE SOD 40 MG TABEC PO SCH (09:30)
[2021-11-09] MEDS: ASPIRIN 81 MG ENTERIC COATED PO SCH (09:30)
[2021-11-09] MEDS: HYDRALAZINE HCL 25 MG TAB PO SCH ×3 (09:30→21:02)
[2021-11-09] MEDS: CARVEDILOL 12.5 MG TAB PO SCH ×2 (09:30→17:39)
[2021-11-09] MEDS: DOCUSATE SODIUM 100 MG CAP PO SCH ×2 (09:31→17:38)
[2021-11-09] MEDS: LEVETIRACETAM 500 MG TAB PO SCH (09:31)
[2021-11-09] MEDS: TAMSULOSIN HCL 0.4 MG CAP PO SCH (09:31)
[2021-11-09] MEDS: LOSARTAN POTASSIUM 25 MG TAB PO SCH (09:31)
[2021-11-09] MEDS: SITAGLIPTIN 100 MG TAB PO SCH (09:31)
[2021-11-09] MEDS: APIXAB 2.5 MG TABLET PO SCH ×2 (09:31→17:39)
[2021-11-09] MEDS: FINASTERIDE 5 MG TAB PO SCH (09:31)
[2021-11-09] MEDS: MEROPENEM 500 MG in SODIUM CHLORIDE 0.9% 50ML 50 ML IV SCH (14:16)
[2021-11-09] MEDS: FUROSEMIDE INJ 10 MG/ML 4 ML VIAL IV SCH (21:02)
[2021-11-10] VITALS (8 sets, daily range): BP systolic 136–168; BP diastolic 59–83
[2021-11-10] MEDS: MEROPENEM 500 MG in SODIUM CHLORIDE 0.9% 50ML 50 ML IV SCH ×2 (00:03→12:27)
[2021-11-10] MEDS: ASPIRIN 81 MG ENTERIC COATED PO SCH (08:38)
[2021-11-10] MEDS: HYDRALAZINE HCL 25 MG TAB PO SCH ×3 (08:38→21:59)
[2021-11-10] MEDS: DOCUSATE SODIUM 100 MG CAP PO SCH ×2 (08:38→16:41)
[2021-11-10] MEDS: CARVEDILOL 12.5 MG TAB PO SCH ×2 (08:38→16:41)
[2021-11-10] MEDS: FUROSEMIDE INJ 10 MG/ML 4 ML VIAL IV SCH ×2 (08:38→21:58)
[2021-11-10] MEDS: PANTOPRAZOLE SOD 40 MG TABEC PO SCH (08:38)
[2021-11-10] MEDS: TAMSULOSIN HCL 0.4 MG CAP PO SCH (08:39)
[2021-11-10] MEDS: FINASTERIDE 5 MG TAB PO SCH (08:39)
[2021-11-10] MEDS: APIXAB 2.5 MG TABLET PO SCH ×2 (08:39→16:41)
[2021-11-10] MEDS: LOSARTAN POTASSIUM 25 MG TAB PO SCH (08:39)
[2021-11-10] MEDS: SITAGLIPTIN 100 MG TAB PO SCH (08:39)
[2021-11-10] MEDS: LEVETIRACETAM 500 MG TAB PO SCH (08:39)
[2021-11-10] MEDS: NPH, HUMAN INSULIN ISOPHANE 100 UNIT/1 ML 3ML VIAL SQ SCH ×2 (09:00→21:00)
[2021-11-11] VITALS (8 sets, daily range): BP systolic 125–171; BP diastolic 50–85
[2021-11-11] MEDS: MEROPENEM 500 MG in SODIUM CHLORIDE 0.9% 50ML 50 ML IV SCH ×2 (01:26→12:51)
[2021-11-11 06:49] LABS: ANION GAP 13.7 mmol/L (8-16); CALCIUM 8.3 mg/dL (8.4-10.2); CREATININE, SERUM 2.01 mg/dL (0.72-1.25); POTASSIUM 3.7 mmol/L (3.5-5.1)
[2021-11-11] MEDS: FUROSEMIDE INJ 10 MG/ML 4 ML VIAL IV SCH (08:13)
[2021-11-11] MEDS: CARVEDILOL 12.5 MG TAB PO SCH ×2 (08:13→17:07)
[2021-11-11] MEDS: PANTOPRAZOLE SOD 40 MG TABEC PO SCH (08:13)
[2021-11-11] MEDS: DOCUSATE SODIUM 100 MG CAP PO SCH ×2 (08:14→17:07)
[2021-11-11] MEDS: HYDRALAZINE HCL 25 MG TAB PO SCH ×3 (08:14→21:26)
[2021-11-11] MEDS: APIXAB 2.5 MG TABLET PO SCH ×2 (08:14→17:07)
[2021-11-11] MEDS: LOSARTAN POTASSIUM 25 MG TAB PO SCH (08:14)
[2021-11-11] MEDS: FINASTERIDE 5 MG TAB PO SCH (08:14)
[2021-11-11] MEDS: SITAGLIPTIN 100 MG TAB PO SCH (08:14)
[2021-11-11] MEDS: ASPIRIN 81 MG ENTERIC COATED PO SCH (08:14)
[2021-11-11] MEDS: LEVETIRACETAM 500 MG TAB PO SCH (08:14)
[2021-11-11] MEDS: TAMSULOSIN HCL 0.4 MG CAP PO SCH (08:14)
[2021-11-11] MEDS: NPH, HUMAN INSULIN ISOPHANE 100 UNIT/1 ML 3ML VIAL SQ SCH ×2 (08:17→21:26)
[2021-11-11] MEDS: FUROSEMIDE 40 MG TAB PO SCH (17:07)
[2021-11-11 17:21] LABS: ANION GAP 12.2 mmol/L (8-16); CALCIUM 8.8 mg/dL (8.4-10.2); CREATININE, SERUM 2.47 mg/dL (0.72-1.25); POTASSIUM 4.2 mmol/L (3.5-5.1)
[2021-11-12] VITALS (8 sets, daily range): BP systolic 115–156; BP diastolic 50–81
[2021-11-12] MEDS: MEROPENEM 500 MG in SODIUM CHLORIDE 0.9% 50ML 50 ML IV SCH ×2 (00:47→13:22)
[2021-11-12] MEDS: FUROSEMIDE 40 MG TAB PO SCH ×2 (05:49→17:17)
[2021-11-12] MEDS: PANTOPRAZOLE SOD 40 MG TABEC PO SCH (08:50)
[2021-11-12] MEDS: SITAGLIPTIN 100 MG TAB PO SCH (08:51)
[2021-11-12] MEDS: APIXAB 2.5 MG TABLET PO SCH ×2 (08:51→17:17)
[2021-11-12] MEDS: ASPIRIN 81 MG ENTERIC COATED PO SCH (08:51)
[2021-11-12] MEDS: CARVEDILOL 12.5 MG TAB PO SCH ×2 (08:51→17:17)
[2021-11-12] MEDS: TAMSULOSIN HCL 0.4 MG CAP PO SCH (08:51)
[2021-11-12] MEDS: DOCUSATE SODIUM 100 MG CAP PO SCH ×2 (08:51→17:16)
[2021-11-12] MEDS: NPH, HUMAN INSULIN ISOPHANE 100 UNIT/1 ML 3ML VIAL SQ SCH ×2 (08:51→21:50)
[2021-11-12] MEDS: HYDRALAZINE HCL 25 MG TAB PO SCH ×3 (08:51→21:00)
[2021-11-12] MEDS: FINASTERIDE 5 MG TAB PO SCH (08:51)
[2021-11-12] MEDS: LOSARTAN POTASSIUM 25 MG TAB PO SCH (08:51)
[2021-11-12] MEDS: LEVETIRACETAM 500 MG TAB PO SCH (08:51)
[2021-11-12] MEDS ORDERED: NIFEDIPINE CR 30 MG TAB PO SCH (10:15)
[2021-11-12] MEDS ORDERED: HUMULIN-R100 UNITS/ SC (18:53)
[2021-11-12] MEDS ORDERED: NIFEDIPINE ER30 M1 PO (18:53)
[2021-11-12] MEDS ORDERED: FUROSEMIDE40 MG PO (18:53)
[2021-11-12] MEDS ORDERED: MEROPENEM500 MG IV (18:54)
== END 2021-11-12 23:22 | DRG 291 ==
LOC: ER 12:26 → ERHOLD 15:20 → MED/SURG2 17:10
PROVIDERS: ADMIT Internal Medicine; ATTEND Internal Medicine
PROC: 02HV33Z Insertion of Infusion Device into Superior Vena Cava, Percutaneous Approach (ICD-10-PCS; principal; 2021-11-12)
DX: I13.0 Hypertensive heart and chronic kidney disease with heart failure and stage 1 through stage 4 chronic kidney disease, or unspecified chronic kidney disease (principal); I50.33 Acute on chronic diastolic (congestive) heart failure; N39.0 Urinary tract infection, site not specified; E87.1 Hypo-osmolality and hyponatremia; N18.4 Chronic kidney disease, stage 4 (severe); N17.9 Acute kidney failure, unspecified; Z16.12 Extended spectrum beta lactamase (ESBL) resistance; N13.8 Other obstructive and reflux uropathy; I48.0 Paroxysmal atrial fibrillation; J44.9 Chronic obstructive pulmonary disease, unspecified; E66.9 Obesity, unspecified; B96.20 Unspecified Escherichia coli [E. coli] as the cause of diseases classified elsewhere; E83.51 Hypocalcemia; N26.1 Atrophy of kidney (terminal); N28.1 Cyst of kidney, acquired; N43.3 Hydrocele, unspecified; N40.1 Benign prostatic hyperplasia with lower urinary tract symptoms; D64.9 Anemia, unspecified; Z68.36 Body mass index [BMI] 36.0-36.9, adult; N18.30 Chronic kidney disease, stage 3 unspecified; E11.22 Type 2 diabetes mellitus with diabetic chronic kidney disease; D63.8 Anemia in other chronic diseases classified elsewhere; Z20.822 Contact with and (suspected) exposure to COVID-19; Z87.440 Personal history of urinary (tract) infections
CPT/HCPCS: 36415; 36556; 71045; 74176; 74470; 76937; 77001; 80048; 80053; 80061; 81001; 82550; 82553; 82948; 83036; 83735; 83880; 84100; 84443; 84484; 85025; 85610; 85730; 87086; 87186; 93005; 93306; 94799; 99284; J0696; J1650; J1940; J2185; J7030; J7050; U0002

== ENCOUNTER 2022-02-14 17:43 | Emergency (ER) | payer MEDICARE, OTHER ==
[~2022-02-14] VITALS: Ht 170.2 cm; Wt 98.4 kg
[~2022-02-14 17:43] MED LIST changes: +DOCUSATE SODIU100 MG PO; +HUMULIN-R100 UNITS/ SC; +LOSARTAN POTASS25 MG PO; +MEROPENEM500 MG IV; +PENTOXIFYLLINE400 MG PO
[2022-02-14 20:25] LABS: CLARITY,URINE HAZY (CLEAR); COLOR,URINE YELLOW (YELLOW); KETONES,URINE NEGATIVE (NEGATIVE); LEUKOCYTE ESTERASE ,URINE MODERATE (NEGATIVE); NITRITE,URINE NEGATIVE (NEGATIVE); PROTEIN,URINE DIPSTICK 2+ (NEGATIVE); URINE UROBILINOGEN 0.2 mg/dL (0.2 - 1)
[2022-02-14 20:36] LABS: BACTERIA,URINE MANY /HPF; RENAL EPITHELIAL CELLS,URINE RARE; WBC,URINE (MAN) >50 /HPF (0-5)
== END 2022-02-14 21:18 | disposition home or self-care (01) ==
LOC: ER 17:49
DX: S16.1XXA Strain of muscle, fascia and tendon at neck level, initial encounter (principal); S39.012A Strain of muscle, fascia and tendon of lower back, initial encounter; S00.83XA Contusion of other part of head, initial encounter; S20.211A Contusion of right front wall of thorax, initial encounter; W01.0XXA Fall on same level from slipping, tripping and stumbling without subsequent striking against object, initial encounter; Y92.098 Other place in other non-institutional residence as the place of occurrence of the external cause; E11.9 Type 2 diabetes mellitus without complications; J44.9 Chronic obstructive pulmonary disease, unspecified; I48.91 Unspecified atrial fibrillation
CPT/HCPCS: 70450; 71101; 72100; 72125; 81001; 99284

== ENCOUNTER 2022-02-16 11:53 | Inpatient (IN) | payer MEDICARE ==
[~2022-02-16] VITALS: Ht 170.2 cm; Wt 98.4 kg
[2022-02-16 12:16] LABS: BASOPHILS % 0.1 % (0.0-1.0); EOSINOPHILS % 0.2 % (0.0-6.0); HEMATOCRIT 33.2 % (38.2-49.6); HEMOGLOBIN 11.1 g/dL (14.0-18.0); LYMPHOCYTES # (AUTO) 0.3 (1.0-3.2); LYMPHOCYTES % 2.9 % (18.0-39.1); MEAN CORPUSCULAR HEMOGLOBIN 30.7 pg (28-32); MEAN CORPUSCULAR HGB CONC 33.4 g/dL (31-35); MONOCYTES # (AUTO) 0.9 (0.2-0.8); MONOCYTES % 7.5 % (4.4-11.3); NEUTROPHILS # (AUTO) 10.2 (2.1-6.9); NEUTROPHILS % 88.7 % (38.7-80.0); PLATELET COUNT 239 x10e3/uL (140-360); RED BLOOD COUNT 3.61 x10e6/uL (4.3-5.7); RED CELL DISTRIBUTION WIDTH 13.2 % (11.7-14.4)
[2022-02-16] MEDS ORDERED: NIFEDIPINE ER30 M1 PO (12:17)
[2022-02-16 13:00] LABS: ALBUMIN 2.9 g/dL (3.5-5.0); ALBUMIN/GLOBULIN RATIO 0.6 (0.8-2.0); ANION GAP 15.3 mmol/L (8-16); CALCIUM 7.8 mg/dL (8.4-10.2); CREATININE, SERUM 3.32 mg/dL (0.72-1.25)
[2022-02-16] MEDS ORDERED: FUROSEMIDE INJ 10 MG/ML 4 ML VIAL IV STA (13:00)
[2022-02-16 13:02] LABS: POTASSIUM 5.3 mmol/L (3.5-5.1)
[2022-02-16] MEDS ORDERED: CALCIUM GLUCONATE 10% INJ 9.3 MEQ in SODIUM CHLORIDE 0.9% 100 ML 100 ML IV ONE (14:30)
[2022-02-16 16:00] VITALS: BP 134/77
[2022-02-16] MEDS: CARVEDILOL 12.5 MG TAB PO SCH (17:08)
[2022-02-16] MEDS: DOCUSATE SODIUM 100 MG CAP PO SCH (17:08)
[2022-02-16] MEDS ORDERED: ACETAMINOPHEN 325 MG TAB PO PRN (20:15)
[2022-02-16 20:19] VITALS: BP 146/88
[2022-02-16] MEDS: HYDRALAZINE HCL 25 MG TAB PO SCH (20:23)
[2022-02-17] VITALS (9 sets, daily range): BP systolic 107–138; BP diastolic 52–74
[2022-02-17] MEDS ORDERED: DEXTROSE 50% SYRINGE 50 ML IV ONE (00:25)
[2022-02-17] MEDS ORDERED: DEXTROSE 50% SYRINGE 50 ML IV PRN (04:00)
[2022-02-17 05:14] LABS: BASOPHILS # (AUTO) 0.1 (0.0-0.1); BASOPHILS % 0.4 % (0.0-1.0); HEMATOCRIT 32.2 % (38.2-49.6); HEMOGLOBIN 10.6 g/dL (14.0-18.0); LYMPHOCYTES # (AUTO) 0.2 (1.0-3.2); LYMPHOCYTES % 1.1 % (18.0-39.1); MEAN CORPUSCULAR HEMOGLOBIN 31.2 pg (28-32); MEAN CORPUSCULAR HGB CONC 32.9 g/dL (31-35); MEAN CORPUSCULAR VOLUME 94.7 fL (81-99); MONOCYTES # (AUTO) 0.9 (0.2-0.8); MONOCYTES % 4.4 % (4.4-11.3); NEUTROPHILS # (AUTO) 18.5 (2.1-6.9); NEUTROPHILS % 92.1 % (38.7-80.0); PLATELET COUNT 181 x10e3/uL (140-360); RED CELL DISTRIBUTION WIDTH 13.3 % (11.7-14.4)
[2022-02-17 05:48] LABS: ANION GAP 16.3 mmol/L (8-16); CALCIUM 7.7 mg/dL (8.4-10.2); CREATININE, SERUM 3.61 mg/dL (0.72-1.25); POTASSIUM 4.3 mmol/L (3.5-5.1)
[2022-02-17] MEDS: INSULIN REGULAR, HUMAN 100 UNIT/1 ML SQ SCH ×4 (07:30→21:00)
[2022-02-17] MEDS: NPH, HUMAN INSULIN ISOPHANE 100 UNIT/1 ML 3ML VIAL SQ SCH ×2 (07:53→17:45)
[2022-02-17] MEDS: DOCUSATE SODIUM 100 MG CAP PO SCH ×2 (08:58→17:44)
[2022-02-17] MEDS: CARVEDILOL 12.5 MG TAB PO SCH ×2 (08:58→17:44)
[2022-02-17] MEDS: HYDRALAZINE HCL 25 MG TAB PO SCH ×3 (08:58→21:23)
[2022-02-17] MEDS: LEVETIRACETAM 500 MG TAB PO SCH (08:59)
[2022-02-17] MEDS: TAMSULOSIN HCL 0.4 MG CAP PO SCH (08:59)
[2022-02-17] MEDS ORDERED: ENOXAPARIN SODIUM INJ 100 MG/ML SYR SC SCH (09:00)
[2022-02-17] MEDS: FUROSEMIDE INJ 10 MG/ML 4 ML VIAL IV SCH ×2 (09:14→21:23)
[2022-02-17 10:50] LABS: CLARITY,URINE CLOUDY (CLEAR); COLOR,URINE YELLOW (YELLOW); KETONES,URINE NEGATIVE (NEGATIVE); LEUKOCYTE ESTERASE ,URINE TRACE (NEGATIVE); NITRITE,URINE NEGATIVE (NEGATIVE); PROTEIN,URINE DIPSTICK 2+ (NEGATIVE); URINE UROBILINOGEN 0.2 mg/dL (0.2 - 1)
[2022-02-17 10:51] LABS: BACTERIA,URINE MANY /HPF; EPITHELIAL CELLS,URINE FEW /LPF; RBC,URINE >50 /HPF (0-5)
[2022-02-17 11:35] LABS: BAND NEUTROPHILS % (MANUAL) 13 %; LYMPHOCYTES % (MANUAL) 2 % (19-48); METAMYELOCYTES % (MANUAL) 3 % (0-0); MONOCYTES % (MANUAL) 3 % (3.4-9.0); NEUTROPHILS % (MANUAL) 79 % (40-74); PLATELET ESTIMATE ADEQUATE; PLATELET MORPHOLOGY COMMENT NORMAL; RBC MORPHOLOGY COMMENT NORMAL
[2022-02-17 13:50] LABS: ABG HCO3 23 mmol/L (22-26); ABG PCO2 46 mmHg (35-45); ABG PH 7.31 (7.35-7.45); ABG PO2 90 mmHg (80-105); ABG TCO2 24
[2022-02-17] MEDS ORDERED: LEVALBUTEROL HCL SOLN NEBU 0.63 MG/3 ML NEB INH PRN (15:30)
[2022-02-18] VITALS (22 sets, daily range): BP systolic 121–161; BP diastolic 50–68
[2022-02-18 05:47] LABS: BASOPHILS # (AUTO) 0.1 (0.0-0.1); BASOPHILS % 0.4 % (0.0-1.0); HEMATOCRIT 28.9 % (38.2-49.6); HEMOGLOBIN 9.7 g/dL (14.0-18.0); LYMPHOCYTES # (AUTO) 0.4 (1.0-3.2); LYMPHOCYTES % 1.7 % (18.0-39.1); MEAN CORPUSCULAR HEMOGLOBIN 31.3 pg (28-32); MEAN CORPUSCULAR HGB CONC 33.6 g/dL (31-35); MEAN CORPUSCULAR VOLUME 93.2 fL (81-99); MONOCYTES # (AUTO) 1.4 (0.2-0.8); MONOCYTES % 5.7 % (4.4-11.3); NEUTROPHILS # (AUTO) 19.8 (2.1-6.9); NEUTROPHILS % 82.3 % (38.7-80.0); PLATELET COUNT 183 x10e3/uL (140-360); RED CELL DISTRIBUTION WIDTH 13.6 % (11.7-14.4)
[2022-02-18 06:07] LABS: ALBUMIN 2.4 g/dL (3.5-5.0); ALBUMIN/GLOBULIN RATIO 0.6 (0.8-2.0); CREATININE, SERUM 3.53 mg/dL (0.72-1.25)
[2022-02-18] MEDS: INSULIN REGULAR, HUMAN 100 UNIT/1 ML SQ SCH ×4 (07:30→20:44)
[2022-02-18] MEDS: TAMSULOSIN HCL 0.4 MG CAP PO SCH (08:47)
[2022-02-18] MEDS: FUROSEMIDE INJ 10 MG/ML 4 ML VIAL IV SCH ×2 (08:47→20:43)
[2022-02-18] MEDS: CARVEDILOL 12.5 MG TAB PO SCH ×2 (08:47→16:57)
[2022-02-18] MEDS: DOCUSATE SODIUM 100 MG CAP PO SCH ×2 (08:47→16:56)
[2022-02-18] MEDS: LEVETIRACETAM 500 MG TAB PO SCH (08:47)
[2022-02-18 11:24] LABS: BAND NEUTROPHILS % (MANUAL) 9 %; LYMPHOCYTES % (MANUAL) 1 % (19-48); MONOCYTES % (MANUAL) 3 % (3.4-9.0); NEUTROPHILS % (MANUAL) 87 % (40-74)
[2022-02-18 11:25] LABS: PLATELET ESTIMATE ADEQUATE; PLATELET MORPHOLOGY COMMENT NORMAL; RBC MORPHOLOGY COMMENT NORMAL
[2022-02-18] MEDS: HYDRALAZINE HCL 25 MG TAB PO SCH ×3 (11:41→20:43)
[2022-02-18] MEDS: NPH, HUMAN INSULIN ISOPHANE 100 UNIT/1 ML 3ML VIAL SQ SCH ×2 (11:42→16:58)
[2022-02-18] MEDS: ONDANSETRON HCL INJ 2MG/ML 2ML 2 MG/ML VIAL IV PRN (16:46)
[2022-02-19] VITALS (13 sets, daily range): BP systolic 129–152; BP diastolic 58–87
[2022-02-19 06:03] LABS: CALCIUM 8.2 mg/dL (8.4-10.2); CREATININE, SERUM 3.51 mg/dL (0.72-1.25)
[2022-02-19] MEDS: INSULIN REGULAR, HUMAN 100 UNIT/1 ML SQ SCH ×4 (08:16→20:30)
[2022-02-19] MEDS: CARVEDILOL 12.5 MG TAB PO SCH ×2 (08:49→16:01)
[2022-02-19] MEDS: FUROSEMIDE INJ 10 MG/ML 4 ML VIAL IV SCH ×2 (08:49→17:18)
[2022-02-19] MEDS: HYDRALAZINE HCL 25 MG TAB PO SCH ×3 (08:50→19:22)
[2022-02-19] MEDS: TAMSULOSIN HCL 0.4 MG CAP PO SCH (08:50)
[2022-02-19] MEDS: DOCUSATE SODIUM 100 MG CAP PO SCH ×2 (08:50→16:01)
[2022-02-19] MEDS: LEVETIRACETAM 500 MG TAB PO SCH (08:50)
[2022-02-19] MEDS: NPH, HUMAN INSULIN ISOPHANE 100 UNIT/1 ML 3ML VIAL SQ SCH ×2 (08:58→17:00)
[2022-02-19] MEDS: ONDANSETRON HCL INJ 2MG/ML 2ML 2 MG/ML VIAL IV PRN (10:28)
[2022-02-19] MEDS ORDERED: NPH, HUMAN INSULIN ISOPHANE 100 UNIT/1 ML 3ML VIAL SQ ONE (17:30)
[2022-02-19] MEDS ORDERED: FUROSEMIDE 40 MG TAB PO SCH (18:00)
[2022-02-20] VITALS (27 sets, daily range): BP systolic 132–159; BP diastolic 63–91
[2022-02-20 05:01] LABS: BASOPHILS % 0.1 % (0.0-1.0); HEMATOCRIT 33.4 % (38.2-49.6); HEMOGLOBIN 10.9 g/dL (14.0-18.0); LYMPHOCYTES # (AUTO) 0.4 (1.0-3.2); LYMPHOCYTES % 1.8 % (18.0-39.1); MEAN CORPUSCULAR HEMOGLOBIN 30.8 pg (28-32); MEAN CORPUSCULAR HGB CONC 32.6 g/dL (31-35); MEAN CORPUSCULAR VOLUME 94.4 fL (81-99); MONOCYTES # (AUTO) 0.8 (0.2-0.8); MONOCYTES % 3.7 % (4.4-11.3); NEUTROPHILS # (AUTO) 21.3 (2.1-6.9); PLATELET COUNT 197 x10e3/uL (140-360); RED BLOOD COUNT 3.54 x10e6/uL (4.3-5.7); RED CELL DISTRIBUTION WIDTH 13.6 % (11.7-14.4)
[2022-02-20 05:26] LABS: ALBUMIN 2.2 g/dL (3.5-5.0); ALBUMIN/GLOBULIN RATIO 0.4 (0.8-2.0); ANION GAP 17.6 mmol/L (8-16); CALCIUM 8.1 mg/dL (8.4-10.2); CREATININE, SERUM 3.1 mg/dL (0.72-1.25); POTASSIUM 3.6 mmol/L (3.5-5.1)
[2022-02-20] MEDS: FUROSEMIDE INJ 10 MG/ML 4 ML VIAL IV SCH ×2 (06:15→17:59)
[2022-02-20] MEDS: INSULIN REGULAR, HUMAN 100 UNIT/1 ML SQ SCH ×4 (07:30→21:03)
[2022-02-20] MEDS: CARVEDILOL 12.5 MG TAB PO SCH ×2 (08:00→17:59)
[2022-02-20] MEDS: HYDRALAZINE HCL 25 MG TAB PO SCH ×3 (08:41→21:02)
[2022-02-20] MEDS: DOCUSATE SODIUM 100 MG CAP PO SCH ×2 (08:42→17:58)
[2022-02-20] MEDS: TAMSULOSIN HCL 0.4 MG CAP PO SCH (08:43)
[2022-02-20] MEDS: NPH, HUMAN INSULIN ISOPHANE 100 UNIT/1 ML 3ML VIAL SQ SCH ×2 (08:48→17:59)
[2022-02-20] MEDS: LEVETIRACETAM 500MG/5ML VIAL 500 MG in SODIUM CHLORIDE 0.9% 100 ML 100 ML IV SCH (09:48)
[2022-02-20] MEDS ORDERED: SODIUM CHLORIDE 0.9% 250ML 250 ML ONE (10:08)
[2022-02-21 04:00] VITALS: BP 143/64
[2022-02-21] MEDS: FUROSEMIDE INJ 10 MG/ML 4 ML VIAL IV SCH (05:44)
[2022-02-21] MEDS ORDERED: SODIUM CHLORIDE 0.9% 250ML 250 ML ONE (05:55)
[2022-02-21 06:10] LABS: ANION GAP 14.4 mmol/L (8-16); CALCIUM 8.9 mg/dL (8.4-10.2); CREATININE, SERUM 2.44 mg/dL (0.72-1.25); POTASSIUM 3.4 mmol/L (3.5-5.1)
[2022-02-21 07:56] VITALS: BP 168/76
[2022-02-21 08:02] VITALS: BP 166/71
[2022-02-21] MEDS: LEVETIRACETAM 500MG/5ML VIAL 500 MG in SODIUM CHLORIDE 0.9% 100 ML 100 ML IV SCH (09:23)
[2022-02-21] MEDS: TAMSULOSIN HCL 0.4 MG CAP PO SCH (09:24)
[2022-02-21] MEDS: HYDRALAZINE HCL 25 MG TAB PO SCH ×3 (09:24→21:31)
[2022-02-21] MEDS: DOCUSATE SODIUM 100 MG CAP PO SCH ×2 (09:24→16:52)
[2022-02-21] MEDS: NPH, HUMAN INSULIN ISOPHANE 100 UNIT/1 ML 3ML VIAL SQ SCH ×2 (09:26→17:59)
[2022-02-21] MEDS: INSULIN REGULAR, HUMAN 100 UNIT/1 ML SQ SCH ×4 (09:27→21:00)
[2022-02-21] MEDS: CARVEDILOL 12.5 MG TAB PO SCH ×2 (09:32→16:52)
[2022-02-21 11:46] VITALS: BP 170/85
[2022-02-21] MEDS: HYDRALAZINE HCL 20 MG/ML VIAL IV PRN (13:11)
[2022-02-21 15:18] VITALS: BP 151/72
[2022-02-21] MEDS ORDERED: ONDANSETRON HCL 4 MG ORAL DISINTEGRATING TAB PO PRN (15:30)
[2022-02-21] MEDS: FUROSEMIDE 20 MG TAB PO SCH (16:52)
[2022-02-21 20:00] VITALS: BP 146/70
[2022-02-22] VITALS (7 sets, daily range): BP systolic 123–186; BP diastolic 74–82
[2022-02-22] MEDS: FUROSEMIDE 20 MG TAB PO SCH ×2 (05:42→16:40)
[2022-02-22 06:39] LABS: ANION GAP 16.5 mmol/L (8-16); CALCIUM 8.3 mg/dL (8.4-10.2); CREATININE, SERUM 2.08 mg/dL (0.72-1.25); POTASSIUM 3.5 mmol/L (3.5-5.1)
[2022-02-22] MEDS: INSULIN REGULAR, HUMAN 100 UNIT/1 ML SQ SCH ×4 (07:30→20:24)
[2022-02-22] MEDS: NPH, HUMAN INSULIN ISOPHANE 100 UNIT/1 ML 3ML VIAL SQ SCH ×2 (09:00→16:59)
[2022-02-22] MEDS: TAMSULOSIN HCL 0.4 MG CAP PO SCH (09:40)
[2022-02-22] MEDS: DOCUSATE SODIUM 100 MG CAP PO SCH ×2 (09:40→16:39)
[2022-02-22] MEDS: CARVEDILOL 12.5 MG TAB PO SCH ×2 (09:40→16:40)
[2022-02-22] MEDS: HYDRALAZINE HCL 25 MG TAB PO SCH ×3 (09:40→20:31)
[2022-02-22] MEDS: LEVETIRACETAM 500MG/5ML VIAL 500 MG in SODIUM CHLORIDE 0.9% 100 ML 100 ML IV SCH (09:40)
[2022-02-22 18:24] LABS: CLARITY,URINE CLEAR (CLEAR); COLOR,URINE YELLOW (YELLOW); KETONES,URINE NEGATIVE (NEGATIVE); LEUKOCYTE ESTERASE ,URINE NEGATIVE (NEGATIVE); NITRITE,URINE NEGATIVE (NEGATIVE); PROTEIN,URINE DIPSTICK 2+ (NEGATIVE); URINE UROBILINOGEN 0.2 mg/dL (0.2 - 1)
[2022-02-22 18:30] LABS: WBC,URINE (MAN) 0-5 /HPF (0-5)
[2022-02-22 18:31] LABS: BACTERIA,URINE FEW /HPF; EPITHELIAL CELLS,URINE MODERATE /LPF
[2022-02-23] VITALS (7 sets, daily range): BP systolic 126–192; BP diastolic 61–93
[2022-02-23] MEDS: HYDRALAZINE HCL 20 MG/ML VIAL IV PRN (04:31)
[2022-02-23] MEDS: FUROSEMIDE 20 MG TAB PO SCH ×2 (05:47→17:10)
[2022-02-23] MEDS: INSULIN REGULAR, HUMAN 100 UNIT/1 ML SQ SCH ×4 (07:30→20:55)
[2022-02-23] MEDS: NPH, HUMAN INSULIN ISOPHANE 100 UNIT/1 ML 3ML VIAL SQ SCH ×2 (08:24→17:10)
[2022-02-23] MEDS: LEVETIRACETAM 500MG/5ML VIAL 500 MG in SODIUM CHLORIDE 0.9% 100 ML 100 ML IV SCH (09:08)
[2022-02-23] MEDS: CARVEDILOL 12.5 MG TAB PO SCH ×2 (09:08→17:11)
[2022-02-23] MEDS: HYDRALAZINE HCL 25 MG TAB PO SCH ×3 (09:09→20:56)
[2022-02-23] MEDS: DOCUSATE SODIUM 100 MG CAP PO SCH ×2 (09:09→17:11)
[2022-02-23] MEDS: TAMSULOSIN HCL 0.4 MG CAP PO SCH (09:09)
[2022-02-23] MEDS ORDERED: BENZONATATE 100 MG CAP PO PRN (16:45)
[2022-02-23 17:44] LABS: ANION GAP 14.6 mmol/L (8-16); CALCIUM 8.9 mg/dL (8.4-10.2); CREATININE, SERUM 2.02 mg/dL (0.72-1.25); POTASSIUM 3.6 mmol/L (3.5-5.1)
[2022-02-24 04:00] VITALS: BP 126/65
[2022-02-24 06:03] LABS: BASOPHILS % 0.2 % (0.0-1.0); EOSINOPHILS # (AUTO) 0.2 (0.0-0.4); EOSINOPHILS % 1.5 % (0.0-6.0); HEMATOCRIT 32.9 % (38.2-49.6); HEMOGLOBIN 10.6 g/dL (14.0-18.0); LYMPHOCYTES # (AUTO) 0.9 (1.0-3.2); LYMPHOCYTES % 6.9 % (18.0-39.1); MEAN CORPUSCULAR HEMOGLOBIN 30.2 pg (28-32); MEAN CORPUSCULAR HGB CONC 32.2 g/dL (31-35); MEAN CORPUSCULAR VOLUME 93.7 fL (81-99); MONOCYTES # (AUTO) 0.8 (0.2-0.8); MONOCYTES % 6.4 % (4.4-11.3); NEUTROPHILS # (AUTO) 10.4 (2.1-6.9); NEUTROPHILS % 83.7 % (38.7-80.0); PLATELET COUNT 268 x10e3/uL (140-360); RED BLOOD COUNT 3.51 x10e6/uL (4.3-5.7); RED CELL DISTRIBUTION WIDTH 13.2 % (11.7-14.4)
[2022-02-24] MEDS: FUROSEMIDE 20 MG TAB PO SCH ×2 (06:05→16:40)
[2022-02-24 06:25] LABS: ANION GAP 13.6 mmol/L (8-16); CALCIUM 8.3 mg/dL (8.4-10.2); CREATININE, SERUM 2.09 mg/dL (0.72-1.25); POTASSIUM 3.6 mmol/L (3.5-5.1)
[2022-02-24] MEDS: INSULIN REGULAR, HUMAN 100 UNIT/1 ML SQ SCH ×4 (08:00→21:00)
[2022-02-24 08:16] VITALS: BP 148/83
[2022-02-24 08:36] VITALS: BP 148/83
[2022-02-24] MEDS: NPH, HUMAN INSULIN ISOPHANE 100 UNIT/1 ML 3ML VIAL SQ SCH ×2 (09:00→16:40)
[2022-02-24] MEDS: HYDRALAZINE HCL 25 MG TAB PO SCH ×3 (09:08→21:00)
[2022-02-24] MEDS: DOCUSATE SODIUM 100 MG CAP PO SCH ×2 (09:08→16:38)
[2022-02-24] MEDS: CARVEDILOL 12.5 MG TAB PO SCH ×2 (09:08→16:38)
[2022-02-24] MEDS: TAMSULOSIN HCL 0.4 MG CAP PO SCH (09:09)
[2022-02-24] MEDS: LEVETIRACETAM 500MG/5ML VIAL 500 MG in SODIUM CHLORIDE 0.9% 100 ML 100 ML IV SCH (09:12)
[2022-02-24 11:45] VITALS: BP 125/60
[2022-02-24 16:02] VITALS: BP 111/67
[2022-02-24 20:20] VITALS: BP 136/61
[2022-02-25 00:55] VITALS: BP 137/83
[2022-02-25 04:48] VITALS: BP 159/62
[2022-02-25] MEDS: FUROSEMIDE 20 MG TAB PO SCH (05:12)
[2022-02-25 08:02] VITALS: BP 150/59
[2022-02-25 08:18] VITALS: BP 150/59
[2022-02-25] MEDS: CARVEDILOL 12.5 MG TAB PO SCH (08:22)
[2022-02-25] MEDS: LEVETIRACETAM 500MG/5ML VIAL 500 MG in SODIUM CHLORIDE 0.9% 100 ML 100 ML IV SCH (08:22)
[2022-02-25] MEDS: HYDRALAZINE HCL 25 MG TAB PO SCH (08:22)
[2022-02-25] MEDS: DOCUSATE SODIUM 100 MG CAP PO SCH (08:23)
[2022-02-25] MEDS: TAMSULOSIN HCL 0.4 MG CAP PO SCH (08:23)
[2022-02-25] MEDS: INSULIN REGULAR, HUMAN 100 UNIT/1 ML SQ SCH ×2 (08:24→12:05)
[2022-02-25] MEDS: NPH, HUMAN INSULIN ISOPHANE 100 UNIT/1 ML 3ML VIAL SQ SCH (08:24)
[2022-02-25 11:50] VITALS: BP 124/73
[2022-02-26] MEDS ORDERED: BALSAM PERU/CASTOR OIL 60 GM OINT...G. TP SCH (09:00)
== END 2022-02-25 14:50 | DRG 871 ==
LOC: ER 12:03 → ERHOLD 13:24 → MED/SURG 15:43 → ICU 02-17 13:48 → MED/SURG3 02-20 23:31
PROVIDERS: ADMIT Internal Medicine; ATTEND Internal Medicine
DX: A41.51 Sepsis due to Escherichia coli [E. coli] (principal); I50.33 Acute on chronic diastolic (congestive) heart failure; J96.00 Acute respiratory failure, unspecified whether with hypoxia or hypercapnia; I13.0 Hypertensive heart and chronic kidney disease with heart failure and stage 1 through stage 4 chronic kidney disease, or unspecified chronic kidney disease; N18.4 Chronic kidney disease, stage 4 (severe); N39.0 Urinary tract infection, site not specified; E87.1 Hypo-osmolality and hyponatremia; N17.9 Acute kidney failure, unspecified; D68.32 Hemorrhagic disorder due to extrinsic circulating anticoagulants; Z16.12 Extended spectrum beta lactamase (ESBL) resistance; R65.20 Severe sepsis without septic shock; E11.22 Type 2 diabetes mellitus with diabetic chronic kidney disease; Z79.899 Other long term (current) drug therapy; D63.8 Anemia in other chronic diseases classified elsewhere; E87.6 Hypokalemia; E87.5 Hyperkalemia; J44.9 Chronic obstructive pulmonary disease, unspecified; I48.0 Paroxysmal atrial fibrillation; Z79.01 Long term (current) use of anticoagulants; E11.43 Type 2 diabetes mellitus with diabetic autonomic (poly)neuropathy; K31.84 Gastroparesis; R31.9 Hematuria, unspecified; T45.515A Adverse effect of anticoagulants, initial encounter; R31.0 Gross hematuria; E66.9 Obesity, unspecified; Z68.34 Body mass index [BMI] 34.0-34.9, adult; G47.00 Insomnia, unspecified; K82.9 Disease of gallbladder, unspecified
CPT/HCPCS: 36415; 36600; 71045; 74018; 74176; 76700; 80048; 80053; 81001; 82805; 82948; 83880; 84484; 85025; 87040; 87086; 87186; 93005; 94799; 96372; 97139; 99251; 99284; J0360; J0610; J1817; J1940; J2185; J2405; J7050; J7799; Q0162; U0002

== ENCOUNTER 2023-10-20 18:11 | Inpatient (IN) | payer MEDICARE ==
[~2023-10-20] VITALS: Ht 167.6 cm; Wt 104.3 kg
[2023-10-20 19:29] LABS: BASOPHILS % 0.7 % (0.0-1.0); EOSINOPHILS % 0.6 % (0.0-6.0); HEMATOCRIT 40.9 % (38.2-49.6); LYMPHOCYTES # (AUTO) 0.6 (1.0-3.2); LYMPHOCYTES % 11.4 % (18.0-39.1); MEAN CORPUSCULAR HEMOGLOBIN 31.3 pg (28-32); MEAN CORPUSCULAR HGB CONC 34.2 g/dL (31-35); MEAN CORPUSCULAR VOLUME 91.5 fL (81-99); MONOCYTES # (AUTO) 0.6 (0.2-0.8); NEUTROPHILS % 74.4 % (38.7-80.0); PLATELET COUNT 184 x10e3/uL (140-360); RED BLOOD COUNT 4.47 x10e6/uL (4.3-5.7); RED CELL DISTRIBUTION WIDTH 13.1 % (11.7-14.4); WHITE BLOOD COUNT 5.35 x10e3/uL (4.8-10.8)
[2023-10-20 19:46] LABS: ALBUMIN 3.1 g/dL (3.5-5.0); ALBUMIN/GLOBULIN RATIO 0.6 (0.8-2.0); ANION GAP 17.8 mmol/L (8-16); BILIRUBIN,TOTAL 0.3 mg/dL (0.2-1.2); CALCIUM 8.2 mg/dL (8.4-10.2); CREATININE, SERUM 2.73 mg/dL (0.72-1.25); POTASSIUM 4.8 mmol/L (3.5-5.1); TOTAL PROTEIN 7.9 g/dL (6.5-8.1)
[2023-10-20 20:03] LABS: TROPONIN I 0.011 ng/mL (0-0.300)
[2023-10-20 20:12] LABS: CLARITY,URINE HAZY (CLEAR); COLOR,URINE YELLOW (YELLOW); LEUKOCYTE ESTERASE ,URINE SMALL (NEGATIVE); NITRITE,URINE NEGATIVE (NEGATIVE); PH,URINE 5.5 (5 - 7)
[2023-10-20 20:13] LABS: BILIRUBIN,URINE NEGATIVE (NEGATIVE); GLUCOSE, URINE NEGATIVE (NEGATIVE); KETONES,URINE NEGATIVE (NEGATIVE); PROTEIN,URINE DIPSTICK >=300 (NEGATIVE); URINE UROBILINOGEN 0.2 mg/dL (0.2 - 1)
[2023-10-20 20:27] LABS: BACTERIA,URINE MANY /HPF; RBC,URINE 0-5 /HPF (0-5); WBC,URINE (MAN) 21-50 /HPF (0-5)
[2023-10-20] MEDS ORDERED: LACTATED RINGER'S 500 ML IV ONE (20:45)
[2023-10-20] MEDS ORDERED: ASPIRIN 81 MG CHEW TAB PO ONE (20:45)
[2023-10-20] MEDS ORDERED: LACTATED RINGER'S 1,000 ML ONE (21:14)
[2023-10-20 22:30] VITALS: BP_SYST 128; BP_SYST 131; BP_DIAS 67; BP_DIAS 83; PULSE 62; PULSE 80; RESP 16; RESP 17; TEMP 97.7; TEMP 97.8; O2SAT 98; O2SAT 99
[2023-10-20 22:53] VITALS: PULSE 57; RESP 18; O2SAT 98
[2023-10-21] VITALS (10 sets, daily range): BP systolic 126–150; BP diastolic 65–97; PULSE 74–87; RESP 17–20; TEMP 97.7–99.6; O2SAT 95–99
[2023-10-21] MEDS ORDERED: NIFEDIPINE ER30 M1 PO (04:31)
[2023-10-21] MEDS ORDERED: KEPPRA1000 M1 PO (04:33)
[2023-10-21] MEDS ORDERED: PANTOPRAZOLE SO40 MG PO (04:34)
[2023-10-21] MEDS ORDERED: FLOMAX0.4 MG PO (04:35)
[2023-10-21] MEDS ORDERED: COREG12.5 MG PO (04:37)
[2023-10-21] MEDS ORDERED: ELIQUIS2.5 MG PO (04:41)
[2023-10-21] MEDS ORDERED: FUROSEMIDE40 MG PO (04:41)
[2023-10-21] MEDS ORDERED: LOSARTAN POTASS25 MG PO (04:41)
[2023-10-21] MEDS ORDERED: FINASTERIDE5 MG PO (04:41)
[2023-10-21] MEDS ORDERED: PENTOXIFYLLINE400 MG PO (04:41)
[2023-10-21] MEDS ORDERED: CEPHALEXIN250 MG PO (04:41)
[2023-10-21 06:04] LABS: BASOPHILS % 0.5 % (0.0-1.0); EOSINOPHILS # (AUTO) 0.1 (0.0-0.4); EOSINOPHILS % 1.6 % (0.0-6.0); HEMATOCRIT 37.4 % (38.2-49.6); HEMOGLOBIN 12.9 g/dL (14.0-18.0); LYMPHOCYTES # (AUTO) 0.5 (1.0-3.2); LYMPHOCYTES % 12.1 % (18.0-39.1); MEAN CORPUSCULAR HEMOGLOBIN 30.9 pg (28-32); MEAN CORPUSCULAR HGB CONC 34.5 g/dL (31-35); MEAN CORPUSCULAR VOLUME 89.7 fL (81-99); MONOCYTES # (AUTO) 0.7 (0.2-0.8); MONOCYTES % 16.5 % (4.4-11.3); NEUTROPHILS % 68.8 % (38.7-80.0); PLATELET COUNT 160 x10e3/uL (140-360); RED BLOOD COUNT 4.17 x10e6/uL (4.3-5.7); RED CELL DISTRIBUTION WIDTH 13.2 % (11.7-14.4)
[2023-10-21 06:25] LABS: ANION GAP 13.3 mmol/L (8-16); CALCIUM 7.7 mg/dL (8.4-10.2); CREATININE, SERUM 2.6 mg/dL (0.72-1.25); POTASSIUM 4.3 mmol/L (3.5-5.1)
[2023-10-21 06:51] LABS: TROPONIN I 0.012 ng/mL (0-0.300)
[2023-10-21] MEDS ORDERED: CEPHALEXIN MONOHYDRATE 250 MG CAP PO SCH (10:11)
[2023-10-21] MEDS: SODIUM CHLORIDE 0.9% 1000ML 1,000 ML IV SCH ×2 (11:29→21:25)
[2023-10-21] MEDS: APIXAB 2.5 MG TABLET PO SCH ×2 (11:37→17:59)
[2023-10-21] MEDS: PENTOXIFYLLINE 400 MG TAB CR PO SCH ×2 (11:37→17:59)
[2023-10-21] MEDS: PANTOPRAZOLE SOD 40 MG TABEC PO SCH (11:37)
[2023-10-21] MEDS: TAMSULOSIN HCL 0.4 MG CAP PO SCH (11:37)
[2023-10-21] MEDS: FINASTERIDE 5 MG TAB PO SCH (11:37)
[2023-10-21] MEDS: LEVETIRACETAM 500 MG TAB PO SCH (11:37)
[2023-10-21] MEDS: CARVEDILOL 12.5 MG TAB PO SCH ×2 (11:38→18:00)
[2023-10-21 14:37] LABS: TROPONIN I 0.011 ng/mL (0-0.300)
[2023-10-22] VITALS (9 sets, daily range): BP systolic 129–188; BP diastolic 77–98; PULSE 77–98; RESP 16–21; TEMP 97.3–98.5; O2SAT 96–100
[2023-10-22] MEDS: SODIUM CHLORIDE 0.9% 1000ML 1,000 ML IV SCH ×2 (07:13→18:15)
[2023-10-22] MEDS: TAMSULOSIN HCL 0.4 MG CAP PO SCH (08:15)
[2023-10-22] MEDS: PENTOXIFYLLINE 400 MG TAB CR PO SCH ×2 (08:16→18:09)
[2023-10-22] MEDS: CARVEDILOL 12.5 MG TAB PO SCH ×2 (08:16→18:08)
[2023-10-22] MEDS: FINASTERIDE 5 MG TAB PO SCH (08:16)
[2023-10-22] MEDS: PANTOPRAZOLE SOD 40 MG TABEC PO SCH (08:16)
[2023-10-22] MEDS: APIXAB 2.5 MG TABLET PO SCH ×2 (08:16→18:09)
[2023-10-22] MEDS: LEVETIRACETAM 500 MG TAB PO SCH (08:16)
[2023-10-22] MEDS: ONDANSETRON HCL INJ 2MG/ML 2ML 2 MG/ML VIAL IV PRN (21:29)
[2023-10-23] VITALS (8 sets, daily range): BP systolic 144–188; BP diastolic 66–86; PULSE 67–81; RESP 17–21; TEMP 97.8–98.8; O2SAT 98–100
[2023-10-23] MEDS: SODIUM CHLORIDE 0.9% 1000ML 1,000 ML IV SCH (05:46)
[2023-10-23] MEDS: ONDANSETRON HCL INJ 2MG/ML 2ML 2 MG/ML VIAL IV PRN (05:50)
[2023-10-23 06:05] LABS: BASOPHILS % 0.6 % (0.0-1.0); EOSINOPHILS % 0.4 % (0.0-6.0); HEMATOCRIT 42.4 % (38.2-49.6); HEMOGLOBIN 14.2 g/dL (14.0-18.0); LYMPHOCYTES # (AUTO) 1.3 (1.0-3.2); LYMPHOCYTES % 26.2 % (18.0-39.1); MEAN CORPUSCULAR HEMOGLOBIN 31.3 pg (28-32); MEAN CORPUSCULAR HGB CONC 33.5 g/dL (31-35); MEAN CORPUSCULAR VOLUME 93.4 fL (81-99); MONOCYTES # (AUTO) 0.7 (0.2-0.8); MONOCYTES % 14.5 % (4.4-11.3); NEUTROPHILS # (AUTO) 2.9 (2.1-6.9); NEUTROPHILS % 58.1 % (38.7-80.0); PLATELET COUNT 126 x10e3/uL (140-360); RED BLOOD COUNT 4.54 x10e6/uL (4.3-5.7); RED CELL DISTRIBUTION WIDTH 13.2 % (11.7-14.4); WHITE BLOOD COUNT 5.03 x10e3/uL (4.8-10.8)
[2023-10-23 07:10] LABS: ANION GAP 12.2 mmol/L (8-16); CALCIUM 7.7 mg/dL (8.4-10.2); CREATININE, SERUM 1.97 mg/dL (0.72-1.25); POTASSIUM 4.2 mmol/L (3.5-5.1)
[2023-10-23 09:00] LABS: LYMPHOCYTES % (MANUAL) 13 % (19-48); MONOCYTES % (MANUAL) 18 % (3.4-9.0); NEUTROPHILS % (MANUAL) 69 % (40-74); PLATELET ESTIMATE SLIGHTLY DECREASED; PLATELET MORPHOLOGY COMMENT NORMAL; RBC MORPHOLOGY COMMENT NORMAL
[2023-10-23] MEDS: CARVEDILOL 12.5 MG TAB PO SCH ×2 (09:00→16:44)
[2023-10-23] MEDS: PANTOPRAZOLE SOD 40 MG TABEC PO SCH (09:00)
[2023-10-23] MEDS: NIFEDIPINE CR 30 MG TAB PO SCH (09:01)
[2023-10-23] MEDS: FINASTERIDE 5 MG TAB PO SCH (09:01)
[2023-10-23] MEDS: APIXAB 2.5 MG TABLET PO SCH ×2 (09:01→16:44)
[2023-10-23] MEDS: TAMSULOSIN HCL 0.4 MG CAP PO SCH (09:02)
[2023-10-23] MEDS: PENTOXIFYLLINE 400 MG TAB CR PO SCH ×2 (09:02→16:44)
[2023-10-23] MEDS: LEVETIRACETAM 500 MG TAB PO SCH (09:02)
[2023-10-23] MEDS ORDERED: HYDRALAZINE HCL 20 MG/ML VIAL IV PRN (12:15)
[2023-10-23] MEDS ORDERED: SPIRONOLACTONE 25 MG TAB PO ONE (17:15)
[2023-10-24 04:00] VITALS: BP 168/80; PULSE 72; RESP 18; TEMP 98; O2SAT 98
[2023-10-24 08:28] VITALS: BP 179/67; PULSE 66; RESP 17; TEMP 97.8; O2SAT 97
[2023-10-24 08:40] LABS: BASOPHILS % 0.3 % (0.0-1.0); EOSINOPHILS # (AUTO) 0.2 (0.0-0.4); EOSINOPHILS % 2.4 % (0.0-6.0); HEMATOCRIT 40.8 % (38.2-49.6); HEMOGLOBIN 13.7 g/dL (14.0-18.0); LYMPHOCYTES # (AUTO) 3.4 (1.0-3.2); LYMPHOCYTES % 50.1 % (18.0-39.1); MEAN CORPUSCULAR HEMOGLOBIN 30.6 pg (28-32); MEAN CORPUSCULAR HGB CONC 33.6 g/dL (31-35); MEAN CORPUSCULAR VOLUME 91.1 fL (81-99); MONOCYTES # (AUTO) 0.3 (0.2-0.8); MONOCYTES % 3.7 % (4.4-11.3); NEUTROPHILS # (AUTO) 2.9 (2.1-6.9); NEUTROPHILS % 43.1 % (38.7-80.0); PLATELET COUNT 123 x10e3/uL (140-360); RED BLOOD COUNT 4.48 x10e6/uL (4.3-5.7); RED CELL DISTRIBUTION WIDTH 13.5 % (11.7-14.4); WHITE BLOOD COUNT 6.74 x10e3/uL (4.8-10.8)
[2023-10-24 09:00] VITALS: BP 179/67; PULSE 66; RESP 17; TEMP 97.8; O2SAT 97
[2023-10-24 09:01] LABS: ANION GAP 11.9 mmol/L (8-16); CALCIUM 7.7 mg/dL (8.4-10.2); CREATININE, SERUM 1.9 mg/dL (0.72-1.25); POTASSIUM 3.9 mmol/L (3.5-5.1)
[2023-10-24] MEDS: TAMSULOSIN HCL 0.4 MG CAP PO SCH (09:32)
[2023-10-24] MEDS: SODIUM CHLORIDE 0.9% 1000ML 1,000 ML IV SCH (09:32)
[2023-10-24] MEDS: FINASTERIDE 5 MG TAB PO SCH (09:32)
[2023-10-24] MEDS: SPIRONOLACTONE 25 MG TAB PO SCH (09:33)
[2023-10-24] MEDS: NIFEDIPINE CR 30 MG TAB PO SCH (09:33)
[2023-10-24] MEDS: PANTOPRAZOLE SOD 40 MG TABEC PO SCH (09:33)
[2023-10-24] MEDS: APIXAB 2.5 MG TABLET PO SCH ×2 (09:33→16:49)
[2023-10-24] MEDS: LEVETIRACETAM 500 MG TAB PO SCH (09:33)
[2023-10-24] MEDS: PENTOXIFYLLINE 400 MG TAB CR PO SCH ×2 (09:33→16:50)
[2023-10-24] MEDS: CARVEDILOL 12.5 MG TAB PO SCH ×2 (09:34→16:50)
[2023-10-24] MEDS: HYDRALAZINE HCL 25 MG TAB PO SCH ×3 (10:44→21:15)
[2023-10-24 12:20] VITALS: BP 154/69; PULSE 73; RESP 17; TEMP 98; O2SAT 99
[2023-10-24 14:15] LABS: BAND NEUTROPHILS % (MANUAL) 2 %; EOSINOPHILS % (MANUAL) 3 % (0-7); LYMPHOCYTES % (MANUAL) 7 % (19-48); MONOCYTES % (MANUAL) 13 % (3.4-9.0); NEUTROPHILS % (MANUAL) 53 % (40-74); REACTIVE LYMPHOCYTES 22
[2023-10-24 14:16] LABS: PLATELET ESTIMATE ADEQUATE; PLATELET MORPHOLOGY COMMENT NORMAL; RBC MORPHOLOGY COMMENT NORMAL
[2023-10-24 16:25] VITALS: BP 122/55; PULSE 68; RESP 17; TEMP 97.8; O2SAT 96
[2023-10-24] MEDS: NPH, HUMAN INSULIN ISOPHANE 100 UNIT/1 ML 3ML VIAL SQ SCH (16:55)
[2023-10-24 20:00] VITALS: BP 140/62; PULSE 66; RESP 17; TEMP 97.7; O2SAT 96
[2023-10-25 04:00] VITALS: BP 133/60; PULSE 73; RESP 19; TEMP 97.7; O2SAT 97
[2023-10-25 07:49] VITALS: BP 144/68; PULSE 74; RESP 20; TEMP 98.3; O2SAT 97
[2023-10-25 09:04] LABS: ANION GAP 12.7 mmol/L (8-16); CALCIUM 7.5 mg/dL (8.4-10.2); CREATININE, SERUM 2.19 mg/dL (0.72-1.25); POTASSIUM 3.7 mmol/L (3.5-5.1)
[2023-10-25] MEDS: FINASTERIDE 5 MG TAB PO SCH (09:37)
[2023-10-25] MEDS: PANTOPRAZOLE SOD 40 MG TABEC PO SCH (09:37)
[2023-10-25] MEDS: TAMSULOSIN HCL 0.4 MG CAP PO SCH (09:37)
[2023-10-25] MEDS: NIFEDIPINE CR 30 MG TAB PO SCH (09:37)
[2023-10-25] MEDS: LEVETIRACETAM 500 MG TAB PO SCH (09:37)
[2023-10-25] MEDS: PENTOXIFYLLINE 400 MG TAB CR PO SCH ×2 (09:37→18:09)
[2023-10-25] MEDS: CARVEDILOL 12.5 MG TAB PO SCH ×2 (09:37→18:10)
[2023-10-25] MEDS: SPIRONOLACTONE 25 MG TAB PO SCH (09:38)
[2023-10-25] MEDS: APIXAB 2.5 MG TABLET PO SCH ×2 (09:38→18:10)
[2023-10-25] MEDS: HYDRALAZINE HCL 25 MG TAB PO SCH ×3 (09:38→20:51)
[2023-10-25] MEDS: NPH, HUMAN INSULIN ISOPHANE 100 UNIT/1 ML 3ML VIAL SQ SCH ×2 (09:47→18:37)
[2023-10-25 11:43] VITALS: BP 136/55; PULSE 77; RESP 18; TEMP 97.4; O2SAT 99
[2023-10-25] MEDS: SODIUM CHLORIDE 0.9% 1000ML 1,000 ML IV SCH (13:21)
[2023-10-25 15:51] VITALS: BP 157/60; PULSE 81; RESP 20; TEMP 98.5; O2SAT 98
[2023-10-25 20:00] VITALS: BP 167/69; PULSE 78; RESP 20; TEMP 98.5; O2SAT 97
[2023-10-26] MEDS: SODIUM CHLORIDE 0.9% 1000ML 1,000 ML IV SCH ×2 (01:55→15:09)
[2023-10-26] MEDS: ONDANSETRON HCL INJ 2MG/ML 2ML 2 MG/ML VIAL IV PRN (01:59)
[2023-10-26 04:00] VITALS: BP 168/79; PULSE 82; RESP 20; TEMP 98.6; O2SAT 97
[2023-10-26 08:23] LABS: HEMATOCRIT 38.5 % (38.2-49.6); HEMOGLOBIN 12.8 g/dL (14.0-18.0); MEAN CORPUSCULAR HEMOGLOBIN 30.8 pg (28-32); MEAN CORPUSCULAR HGB CONC 33.2 g/dL (31-35); MEAN CORPUSCULAR VOLUME 92.5 fL (81-99); PLATELET COUNT 141 x10e3/uL (140-360); RED BLOOD COUNT 4.16 x10e6/uL (4.3-5.7); RED CELL DISTRIBUTION WIDTH 13.3 % (11.7-14.4); WHITE BLOOD COUNT 7.98 x10e3/uL (4.8-10.8)
[2023-10-26 08:43] LABS: ALBUMIN 2.3 g/dL (3.5-5.0); ALBUMIN/GLOBULIN RATIO 0.5 (0.8-2.0); BILIRUBIN,TOTAL 0.4 mg/dL (0.2-1.2); CALCIUM 7.8 mg/dL (8.4-10.2); CREATININE, SERUM 1.99 mg/dL (0.72-1.25); TOTAL PROTEIN 6.7 g/dL (6.5-8.1)
[2023-10-26 08:47] VITALS: BP 136/67; PULSE 82; RESP 17; TEMP 98.3; O2SAT 93
[2023-10-26 09:28] LABS: LYMPHOCYTES % (MANUAL) 14 % (19-48); MONOCYTES % (MANUAL) 9 % (3.4-9.0); NEUTROPHILS % (MANUAL) 73 % (40-74); PLATELET ESTIMATE SLIGHTLY DECREASED; PLATELET MORPHOLOGY COMMENT NORMAL; RBC MORPHOLOGY COMMENT NORMAL; REACTIVE LYMPHOCYTES 4
[2023-10-26] MEDS: SPIRONOLACTONE 25 MG TAB PO SCH (09:40)
[2023-10-26] MEDS: PANTOPRAZOLE SOD 40 MG TABEC PO SCH (09:40)
[2023-10-26] MEDS: HYDRALAZINE HCL 25 MG TAB PO SCH ×3 (09:41→22:03)
[2023-10-26] MEDS: LEVETIRACETAM 500 MG TAB PO SCH (09:42)
[2023-10-26] MEDS: CARVEDILOL 12.5 MG TAB PO SCH ×2 (09:42→17:33)
[2023-10-26] MEDS: TAMSULOSIN HCL 0.4 MG CAP PO SCH (09:42)
[2023-10-26] MEDS: FINASTERIDE 5 MG TAB PO SCH (09:42)
[2023-10-26] MEDS: PENTOXIFYLLINE 400 MG TAB CR PO SCH ×2 (09:42→17:33)
[2023-10-26] MEDS: NIFEDIPINE CR 30 MG TAB PO SCH (09:43)
[2023-10-26] MEDS: NPH, HUMAN INSULIN ISOPHANE 100 UNIT/1 ML 3ML VIAL SQ SCH ×2 (09:49→17:38)
[2023-10-26 10:08] VITALS: BP 136/67; PULSE 82; RESP 17; TEMP 98.3; O2SAT 93
[2023-10-26 15:40] VITALS: BP 159/74; PULSE 73; RESP 17; TEMP 98.6; O2SAT 97
[2023-10-26 20:58] VITALS: BP 125/56; PULSE 74; RESP 18; TEMP 97.9; O2SAT 100
[2023-10-26 21:00] VITALS: BP 125/56; PULSE 74; RESP 18; TEMP 97.9; O2SAT 100
[2023-10-27] VITALS (7 sets, daily range): BP systolic 123–160; BP diastolic 57–71; PULSE 68–75; RESP 16–20; TEMP 97.7–98.5; O2SAT 96–100
[2023-10-27] MEDS: LEVETIRACETAM 500 MG TAB PO SCH (09:14)
[2023-10-27] MEDS: FINASTERIDE 5 MG TAB PO SCH (09:14)
[2023-10-27] MEDS: PANTOPRAZOLE SOD 40 MG TABEC PO SCH (09:14)
[2023-10-27] MEDS: SPIRONOLACTONE 25 MG TAB PO SCH (09:14)
[2023-10-27] MEDS: CARVEDILOL 12.5 MG TAB PO SCH ×2 (09:15→17:23)
[2023-10-27] MEDS: TAMSULOSIN HCL 0.4 MG CAP PO SCH (09:15)
[2023-10-27] MEDS: PENTOXIFYLLINE 400 MG TAB CR PO SCH ×2 (09:15→17:23)
[2023-10-27] MEDS: NIFEDIPINE CR 30 MG TAB PO SCH (09:15)
[2023-10-27] MEDS: HYDRALAZINE HCL 25 MG TAB PO SCH ×3 (09:16→21:56)
[2023-10-27] MEDS: NPH, HUMAN INSULIN ISOPHANE 100 UNIT/1 ML 3ML VIAL SQ SCH ×2 (09:22→17:27)
[2023-10-27] MEDS ORDERED: SPIRONOLACTONE 25 MG TAB PO ONE (17:00)
[2023-10-28] VITALS (8 sets, daily range): BP systolic 144–168; BP diastolic 62–79; PULSE 68–84; RESP 17–19; TEMP 97.1–98.6; O2SAT 95–100
[2023-10-28 01:12] LABS: INR 1.06
[2023-10-28 06:47] LABS: ANION GAP 10.2 mmol/L (8-16); CALCIUM 8.2 mg/dL (8.4-10.2); CREATININE, SERUM 1.98 mg/dL (0.72-1.25); POTASSIUM 4.2 mmol/L (3.5-5.1)
[2023-10-28] MEDS: PANTOPRAZOLE SOD 40 MG TABEC PO SCH (07:30)
[2023-10-28] MEDS: FINASTERIDE 5 MG TAB PO SCH (09:00)
[2023-10-28] MEDS: TAMSULOSIN HCL 0.4 MG CAP PO SCH (09:00)
[2023-10-28] MEDS: LEVETIRACETAM 500 MG TAB PO SCH (09:00)
[2023-10-28] MEDS: CARVEDILOL 12.5 MG TAB PO SCH ×2 (09:00→17:16)
[2023-10-28] MEDS: SPIRONOLACTONE 25 MG TAB PO SCH (09:00)
[2023-10-28] MEDS: NPH, HUMAN INSULIN ISOPHANE 100 UNIT/1 ML 3ML VIAL SQ SCH ×2 (09:00→17:22)
[2023-10-28] MEDS: HYDRALAZINE HCL 25 MG TAB PO SCH ×3 (09:00→21:33)
[2023-10-28] MEDS: PENTOXIFYLLINE 400 MG TAB CR PO SCH ×2 (09:00→17:16)
[2023-10-28] MEDS: NIFEDIPINE CR 30 MG TAB PO SCH (09:00)
[2023-10-28] MEDS ORDERED: LIDOCAINE HCL 2% LOCAL INJ 5 ML SDV VIAL INJ ONE (12:39)
[2023-10-28] MEDS ORDERED: METOCLOPRAMIDE HCL 10 MG/2ML VIAL ONE (12:39)
[2023-10-28] MEDS ORDERED: PROPOFOL IV EMULSION 10 MG/ML 20 ML VIAL ONE (12:39)
[2023-10-29] VITALS (8 sets, daily range): BP systolic 153–192; BP diastolic 64–79; PULSE 79–84; RESP 16–21; TEMP 97.7–98.9; O2SAT 97–98
[2023-10-29] MEDS ORDERED: ONDANSETRON HCL 4 MG ORAL DISINTEGRATING TAB PO PRN (08:45)
[2023-10-29] MEDS: CARVEDILOL 12.5 MG TAB PO SCH ×2 (09:30→17:18)
[2023-10-29] MEDS: APIXAB 2.5 MG TABLET PO SCH ×2 (09:31→17:17)
[2023-10-29] MEDS: NIFEDIPINE CR 30 MG TAB PO SCH (09:31)
[2023-10-29] MEDS: TAMSULOSIN HCL 0.4 MG CAP PO SCH (09:31)
[2023-10-29] MEDS: FINASTERIDE 5 MG TAB PO SCH (09:31)
[2023-10-29] MEDS: PANTOPRAZOLE SOD 40 MG TABEC PO SCH (09:31)
[2023-10-29] MEDS: HYDRALAZINE HCL 25 MG TAB PO SCH (09:32)
[2023-10-29] MEDS: PENTOXIFYLLINE 400 MG TAB CR PO SCH ×2 (09:32→17:16)
[2023-10-29] MEDS: SPIRONOLACTONE 25 MG TAB PO SCH (09:32)
[2023-10-29] MEDS: LEVETIRACETAM 500 MG TAB PO SCH (09:32)
[2023-10-29] MEDS: NPH, HUMAN INSULIN ISOPHANE 100 UNIT/1 ML 3ML VIAL SQ SCH ×2 (09:41→17:00)
[2023-10-29] MEDS ORDERED: ALDACTONE25 MG PO (13:57)
[2023-10-29] MEDS ORDERED: HYDRALAZINE HCL 25 MG TAB PO SCH (15:00)
== END 2023-10-29 18:03 | disposition home health service (06) | DRG 690 ==
LOC: ER 18:26 → ERHOLD 20:45 → MERGE 20:45 → MED/SURG2 22:31
PROVIDERS: ADMIT Internal Medicine; ATTEND Internal Medicine
PROC: 0DB78ZX Excision of Stomach, Pylorus, Via Natural or Artificial Opening Endoscopic, Diagnostic (ICD-10-PCS; principal; 2023-10-28 13:12)
DX: N30.90 Cystitis, unspecified without hematuria (principal); E87.1 Hypo-osmolality and hyponatremia; N17.9 Acute kidney failure, unspecified; I13.0 Hypertensive heart and chronic kidney disease with heart failure and stage 1 through stage 4 chronic kidney disease, or unspecified chronic kidney disease; I50.32 Chronic diastolic (congestive) heart failure; Z16.12 Extended spectrum beta lactamase (ESBL) resistance; I48.20 Chronic atrial fibrillation, unspecified; B96.20 Unspecified Escherichia coli [E. coli] as the cause of diseases classified elsewhere; R33.9 Retention of urine, unspecified; E11.65 Type 2 diabetes mellitus with hyperglycemia; R74.01 Elevation of levels of liver transaminase levels; E83.51 Hypocalcemia; E88.09 Other disorders of plasma-protein metabolism, not elsewhere classified; K44.9 Diaphragmatic hernia without obstruction or gangrene; E78.5 Hyperlipidemia, unspecified; G40.909 Epilepsy, unspecified, not intractable, without status epilepticus; I48.0 Paroxysmal atrial fibrillation; R55 Syncope and collapse; E11.22 Type 2 diabetes mellitus with diabetic chronic kidney disease; I35.8 Other nonrheumatic aortic valve disorders; R53.1 Weakness; R53.81 Other malaise; N18.32 Chronic kidney disease, stage 3b; K76.9 Liver disease, unspecified; K20.80 Other esophagitis without bleeding; K29.70 Gastritis, unspecified, without bleeding; Z87.440 Personal history of urinary (tract) infections; Z20.822 Contact with and (suspected) exposure to COVID-19
CPT/HCPCS: 36415; 43239; 51700; 70450; 71045; 74176; 80048; 80053; 81001; 82270; 82550; 82948; 83880; 84484; 85007; 85025; 85027; 85610; 85730; 87086; 87186; 88305; 88342; 93005; 93306; 93880; 94799; 99252; 99284; J0696; J2001; J2185; J2405; J2765; J7030; J7120; U0002